=== PATIENT | female | born 1935 | race Caucasian/White ===

== ENCOUNTER 2023-12-31 20:51 | Inpatient (IN) | payer OTHER, SELFPAY ==
[2023-12-31] VITALS (8 sets, daily range): BP systolic 194–234; BP diastolic 45–81; BMI 20.3
[2023-12-31 17:44] LABS: Urine Albumin 2+ (Neg - Trace); Urine Bilirubin Negative (Negative); Urine Character Clear (Clear); Urine Color Yellow; Urine Glucose Negative (Negative); Urine Ketone Negative (Negative); Urine Leukocyte Negative (Negative); Urine Nitrite Negative (Negative); Urine Occult Blood Negative (Negative); Urine Specific Gravity 1.015 (<1.030); Urine Urobilinogen Negative (Neg - 1+)
--- NOTE | 2023-12-31 17:48 | ED.GENMED ---
History of Present Illness
General
Chief Complaint: Social Service Referral
Source: patient and ambulance crew
Exam Limitations: none
Time Seen by Provider: 12/31/23 17:21
Nursing documentation reviewed up to this point in time: agreed with
History of Present Illness
History of Present Illness:
The patient is an 88-year-old female who resides with her in independent living and [facility]. Patient was evaluated by the medical clinic today due to ongoing issues of patient's safety at [facility] such as frequent falls.
Unfortunately, [facility] does not have a room available that would provide a higher level of care so patient was sent to the ED to be evaluated. Patient has no complaints. She arrives pleasant and confused. She denies all pain. Patient is
alert and oriented to herself only. According to the paramedics, the patient and her are generally looked after by their daughter, however, she is on vacation.
Past History
Past History
ED Past Medical History: HTN and Other
ED Past Surgical History: Other
Social History
Tobacco: Non-smoker
Alcohol: None
Drug: None
Personal:
Living: with family
Employment: Other
Family History
Family History: Other
Review of Systems
Review of Systems
Allergies reviewed?: Yes
Unable to obtain full review of systems at this time due to: other (Memory loss)
All Other Systems: Not applicable
Phy Exam
Physical Exam
Physical Exam:
Physical Exam
General: no apparent distress, not acutely ill. Confused, very hard of hearing. Atraumatic appearing face and head
Neck: supple. no meningeal signs. Nontender
Heart: s1/s2 regular rate and rhythm, no chest wall tenderness
Lungs: no acute respiratory distress. clear bilaterally
Abdomen: normal bowel sounds. not tender. no CVAT
Neuro: alert and oriented to self only. no focal neurological deficits
Skin: no rash
Psychiatric: well kept. interactive and cooperative
Extremities: No deformity. Nontender upper and lower extremities. Nontender pelvis and hips.
Course
Orders/Labs/Results
Orders:
Orders
12/31/23 17:25
Electrocardiogram (*1) Urgent
Reason for Study: Fatigue / Weakness
EKG- Treatment ONCE
12/31/23 17:26
CT Head W/o Iv Contrast Urgent
Comment:
Reason For Exam: frequent falls
12/31/23 17:32
Complete Blood Count/With Diff Urgent
Comprehensive Metabolic Panel Urgent
Urinalysis Reflex To Culture Urgent
Date Specimen was Collected: 12/31/23
Time Specimen was Collected: 17:28
Urine Microscopic Reflex Cult Urgent
12/31/23 18:30
Troponin I Urgent
12/31/23 18:40
0.9% Sodium Chloride 1000 ml [Nss] 1,000 ml IV BOLUS
Calcium Gluconate 1,000 mg IV NOW STA
12/31/23 18:41
Sodium Zirconium Cyclosilicate [Lokelma] 5 gram PO NOW STA
Abnormal Lab Results
12/31/23
17:32
WBC 11.4 H 10^3/uL
(4.8-10.8)
RBC 3.89 L 10^6/uL
(4.20-5.40)
Hct 36.3 L %
(37.0-47.0)
MCH 32.6 H pg
(27.0-31.0)
MPV 10.7 H fL
(7.4-10.4)
Abs Immat Gran (auto) 0.1 H 10^3/uL
(0-0.05)
Absolute Neuts (auto) 9.2 H 10^3/uL
(1.4-6.5)
Absolute Monos (auto) 0.8 H 10^3/uL
(0.1-0.6)
Neutrophils % 81.3 H %
(42.2-75.2)
Lymphocytes % 11.1 L %
(20.5-51.1)
Sodium 128 L mmol/L
(135-145)
Potassium 6.2 H* mmol/L
(3.5-5.1)
Chloride 94 L mmol/L
(98-107)
BUN 51 H mg/dl
(7-17)
Creatinine 1.3 H mg/dL
(0.6-1.0)
Glucose 132 H mg/dl
(70-99)
AST 37 H U/L
(14-36)
Urine Bacteria (Reflex) Few A
(Negative)
Urine Albumin (Reflex) 2+ A
(Neg - Trace)
12/31/23 17:32
12/31/23 17:32
Vital Signs
Initial and Last Documented VS:
Initial Vital Signs
Temp Pulse Resp Pulse Ox
97.8 F 60 18 98
12/31/23 17:21 12/31/23 17:21 12/31/23 17:21 12/31/23 17:21
Last Documented Vital Signs
Temp Pulse Resp BP Pulse Ox
97.8 F 59 18 222/69 98
12/31/23 17:21 12/31/23 17:32 12/31/23 18:18 12/31/23 17:37 12/31/23 17:32
MDM/Problems Addressed
Differential Diagnosis Includes:
Acute dehydration, intracranial hematoma, UTI
MDM/Problems Addressed:
Patient presents with frequent falls and inability to care for himself
Chronic conditions affecting care:
Possibly dementia
Acute Exacerbation and/or Progression of Chronic Illness:
Patient may have a history of dementia and this is an acute exacerbation
Acute Exacerbation and/or Progression of Chronic Illness: HTN
*Radiology
Radiology exam reviewed: radiology read reviewed
*Pulse Oximetry
Patient hypoxic: no
*EKG
Interpreted by ED Provider?: Yes
Interpretation: abnormal
Comparison EKG: no comparison EKG present
Rate: bradycardiac
Rhythm: sinus
[place]: left axis deviation
Interval: normal interval
QRS Pattern: normal QRS
Ischemia: non-specific ST changes
*Housekeeping Assistant Interpretation
Rate: bradycardiac
Interpretation: normal
Rhythm: sinus
*Critical Care Note
Total Time (30-74mins, 75-104mins- exclusive of procedures): 35 minutes of critical ca
comment:
35 minutes critical care given to patient including reviewing her EKG, blood work, reviewing her CT urinalysis and speaking to the hospitalist
Data Reviewed
Source: patient
Patient Management
Social determinants of health affecting care: Living situation
Discussion with other providers: Hospitalist
Escalation/DeEscalation of care consider admission/obs:
Patient has an [id number]-yymqoof blood pressure, is hyperkalemic and dehydrated. Patient will be admitted
ED Attending Note
-
Portions of this chart may have been created with voice recognition software.� Occasional wrong word or��sound alike� substitutions may have occurred due to the inherent limitations of voice recognition software.
Discharge Plan
Departure
Patient Disposition: Admit
Date of Disposition: 12/31/23
Time of Disposition: 18:44
Admit to: Telemetry
Presentation/result/management discussed w/ accepting MD/DO: Hospitalist
Patient with high blood pressure during this ER visit?: Yes
Condition: Fair
Covid-19: Not Applicable
Discharge Problem:
Adult failure to thrive, Acute dehydration, Acute hyperkalemia
Prescriptions:
No Action
levothyroxine 25 mcg Tablet
25 mcg PO DAILY
ascorbic acid (vitamin C) [Vitamin C] 500 mg Tablet,Chewable
500 mg PO DAILY
doxazosin 4 mg Tablet
4 mg PO DAILY
spironolactone 50 mg Tablet
50 mg PO DAILY
ramipril 10 mg Capsule
10 mg PO DAILY
cholecalciferol (vitamin D3) 50 mcg (2,000 unit) Tablet
50 mcg PO DAILY
PreserVision AREDS-2 250-90-40-1 mg Capsule
1 tab PO BID
Referrals:
Nadege Tiwari MD [Family Provider] -
Interventions
Interventions:
*Risk Screen - Suicide Last Done: 12/31/23 17:28
*General Assessment Last Done: 12/31/23 17:28
*Neglect/Abuse Screening Last Done: 12/31/23 17:28
ED- Fall Risk Assessment Last Done: 12/31/23 17:38
*ED COVID-19 Vaccine History Last Done: 12/31/23 17:28
ED-Psychological Assessment Last Done: 12/31/23 17:30
Discharge Date and Time
Print Language: GEORGIAN
[2023-12-31 17:51] LABS: % Basophils 0.4 % (0-2); % Eosinophils 0.1 % (0-6); % Immature Granulocytes 0.4 % (0-0.5); % Lymphocytes 11.1 % (20.5-51.1); % Monocytes 6.7 % (1.7-9.3); % Neutrophils 81.3 % (42.2-75.2); Absolute Immature Granulocytes 0.1 10^3/uL (0-0.05); Absolute Lymphocytes 1.3 10^3/uL (1.2-3.4); Absolute Monocytes 0.8 10^3/uL (0.1-0.6); Absolute Neutrophils 9.2 10^3/uL (1.4-6.5); Hematocrit 36.3 % (37.0-47.0); Hemoglobin 12.7 g/dL (12.0-16.0); Mean Corpuscular Hgb 32.6 pg (27.0-31.0); Mean Corpuscular Volume 93.3 fL (81.0-99.0); Mean Platelet Volume 10.7 fL (7.4-10.4); Nucleated Red Blood Cells % 0 %; Platelet Count 189 10^3/uL (130-400); Red Blood Cell Count 3.89 10^6/uL (4.20-5.40); Red Cell Dist. Width 14.2 % (11.5-14.5); White Blood Cell Count 11.4 10^3/uL (4.8-10.8)
[2023-12-31 17:54] LABS: Urine Bacteria Few (Negative); Urine Red Blood Cell 0-2 /HPF (0-2); Urine White Cell 0-2 /HPF (0-5)
[2023-12-31 18:03] LABS: ALT (SGPT) 22 U/L (0-35); AST (SGOT) 37 U/L (14-36); Albumin 4.1 g/dl (3.5-5.0); Alkaline Phosphatase 68 U/L (38-126); Blood Urea Nitrogen 51 mg/dl (7-17); Calcium 9.9 mg/dl (8.4-10.2); Carbon Dioxide 22 mmol/L (22-30); Chloride 94 mmol/L (98-107); Estimated Creatinine Clearance 21 ml/min; Glucose 132 mg/dl (70-99); Potassium 6.2 mmol/L (3.5-5.1); Sodium 128 mmol/L (135-145); Total Bilirubin 0.5 mg/dl (0.2-1.3); Total Protein 6.8 g/dl (6.3-8.2); eGFR 39.31
[2023-12-31] MEDS: CALCIUM GLUCONATE 1000 MG IV (19:03)
[2023-12-31] MEDS: LOKELMA 5 GRAM PO (19:04)
[2023-12-31] MEDS: NSS 1000 IV ×2 (19:04→21:57)
[2023-12-31 19:06] LABS: Troponin I 0.079 ng/ml
--- NOTE | 2023-12-31 19:44 | HPS.HSE ---
Family Physician
-
Family Physician: Nadege Tiwari
Chief Complaint
-
Weakness
History of Present Illness
Patient is an 88y F with PMH significant for hypertension and dementia who presents to ED for evaluation of recent decline, weakness and falls. History obtained from patient and review of outpatient medical records. Patient has had several
recent falls at home - though she denies this to me. She has not apparently suffered any significant injury; however, she has demonstrated functional decline. There is some question of whether or not she has been taking her medications
consistently. Patient currently lives independently with her at [facility].
In the ED, patient is resting comfortably and has no complaints.
Medical History
Past Medical History
Past Medical History: Reports Other
Additional Past Medical History:
Hypertension
Dementia
Hypothyroidism
Past Surgical History: Reports Other
Additional Past Surgical History:
Left Shoulder Surgery
Social History
Unable to obtain full social history at this time due to: Dementia
Family History
Family History: Unable to Obtain
Allergies / Home Medications
Allergies reflects when Allergies were last updated in [facility].
Home Medications with original date entered in [facility]
Allergy/Medication List:
Allergies
Allergy/AdvReac Type Severity Reaction Status Date / Time
No Known Allergies Allergy Verified 12/31/23 17:21
Home Medications
ascorbic acid (vitamin C) 500 mg chewable tablet (Vitamin C) 500 mg PO DAILY 12/31/23
cholecalciferol (vitamin D3) 50 mcg (2,000 unit) tablet 50 mcg PO DAILY 12/31/23
doxazosin 4 mg tablet 4 mg PO DAILY 12/31/23
levothyroxine 25 mcg tablet 25 mcg PO DAILY 12/31/23
ramipril 10 mg capsule 10 mg PO DAILY 12/31/23
spironolactone 50 mg tablet 50 mg PO DAILY 12/31/23
vit C 250 mg-vit E 90 mg-zinc 40 mg-copper 1 [id number] capsule (PreserVision AREDS-2) 1 tab PO BID 12/31/23
Review of Systems
-
History Source: Patient
A 12 point ROS was completed and negative except as noted: Yes
Constitutional: Denies Fever
Respiratory: Denies Cough or Trouble Breathing
Cardiac: Denies Chest Pain or Palpitations
Abdomen/GI: Denies Abdominal Pain
Neurological: Denies Headache
Physical Exam
Vital Signs
Vital Signs
Temp Pulse Resp BP Pulse Ox
97.8 F 59 18 222/69 98
12/31/23 17:21 12/31/23 17:32 12/31/23 18:18 12/31/23 17:37 12/31/23 17:32
Physical Exam
General: Other (Elderly 88y F in no acute distress.)
HEENT: Other (Dry MM.)
Respiratory: Clear; No Wheezes, Rales or Rhonchi
Cardiac: S1/S2, Regular Rhythm and Murmur (IV/ JOANN)
GI: Soft, Non Tender, Non Distended and Normal Bowel Sounds
Musculoskeletal: No Clubbing, No Cyanosis and No Edema
Neuro: Awake, Alert and Nonfocal/grossly intact; No Oriented
Psych: No Agitated
Laboratory Results
-
12/31/23 17:32
12/31/23 17:32
Laboratory Results
Total Bilirubin 0.5 mg/dl (0.2-1.3) 12/31/23 17:32
AST 37 U/L (14-36) H 12/31/23 17:32
ALT 22 U/L (0-35) 12/31/23 17:32
Alkaline Phosphatase 68 U/L (38-126) 12/31/23 17:32
Troponin I 0.079 ng/ml H* 12/31/23 18:30
Impression/Plan
-
A/P: Patient is an 88y F with PMH significant for hypertension and dementia who presents to ED for evaluation of functional decline and recent falls.
GEMMA
Hyperkalemia
- Admit for further evaluation and treatment.
- SCr = 1.3 with no prior values for comparison.
- K = 6.2 today without T wave changes c/w hyperkalemia.
- Patient producing urine via PureWick in the ED.
- Bladder scan protocol and straight cath / Pappas if needed.
- IVF support for correction of apparent hypovolemia.
- Follow for improvement in SCr and K.
- Hold BARB inhibitor and spironolactone.
Hypertension - Uncontrolled
- BP in the ED is significantly elevated without specific symptoms / complaints.
- Hold BARB and spironolactone as noted above.
- Labetalol IV now and PRN for very high BP.
- Begin Procardia for BP control and adjust regimen as needed.
Hypothyroidism
- Check TFTs and adjust T4 dosing if needed.
Senile Dementia
- Stable. Not on any mood stabilizing medications, etc at present.
- Follow for any acute agitation, etc during hospital stay.
Frequent Falls / Gait Dysfunction
- Multiple recent falls at home reported.
- PT / OT evaluations.
DVT Prophylaxis: SCDs
Code Status: Full
[2023-12-31] MEDS: TRANDATE 5 MG IV (20:14)
[2023-12-31] MEDS: APRESOLINE 10 MG IV (22:57)
[2023-12-31 23:29] LABS: Free T4 0.43 ng/dl (0.78-2.19)
[2023-12-31 23:55] LABS: Troponin I 0.091 ng/ml
[2024-01-01] VITALS (20 sets, daily range): BP systolic 130–231; BP diastolic 36–71; BMI 19.9
[2024-01-01] MEDS: TRANDATE 10 MG IV (05:28)
[2024-01-01] MEDS: SYNTHROID 25 MCG PO ×2 (05:29→08:43)
[2024-01-01 05:40] LABS: Hematocrit 32.4 % (37.0-47.0); Hemoglobin 11.8 g/dL (12.0-16.0); Mean Corp Hgb Conc. 36.4 g/dL (33.0-37.0); Mean Corpuscular Hgb 32.5 pg (27.0-31.0); Mean Corpuscular Volume 89.3 fL (81.0-99.0); Mean Platelet Volume 10.6 fL (7.4-10.4); Platelet Count 179 10^3/uL (130-400); Red Blood Cell Count 3.63 10^6/uL (4.20-5.40); Red Cell Dist. Width 13.8 % (11.5-14.5); White Blood Cell Count 10.8 10^3/uL (4.8-10.8)
[2024-01-01 06:00] LABS: Blood Urea Nitrogen 39 mg/dl (7-17); Calcium 9.4 mg/dl (8.4-10.2); Carbon Dioxide 19 mmol/L (22-30); Chloride 103 mmol/L (98-107); Estimated Creatinine Clearance 25 ml/min; Glucose 96 mg/dl (70-99); Potassium 4.7 mmol/L (3.5-5.1); Sodium 131 mmol/L (135-145); eGFR 48.03
[2024-01-01 06:20] LABS: Troponin I 0.186 ng/ml
[2024-01-01 08:22] LABS: HDL Cholesterol 108 mg/dl; Triglyceride 84 mg/dl (10-149); Very Low Density Lipoprotein 16 mg/dl (0-30)
[2024-01-01 08:36] LABS: LDL Cholesterol, Calculated 236 mg/dl; Total Cholesterol 360 mg/dl (50-199)
[2024-01-01] MEDS: ASPIRIN 325 MG PO (08:42)
[2024-01-01] MEDS: CARDURA 4 MG PO (08:42)
[2024-01-01] MEDS: PROCARDIA XL (EXTENDED RELEASE) 60 MG PO (08:42)
[2024-01-01] MEDS: NSS IV (08:42)
--- NOTE | 2024-01-01 08:44 | W.PN.HOSP.TC ---
Today's Communication/Plan
-
see PN
Assessment / Plan
Assessment / Plan
88yo F with PMHx of hypothyroidism, HTN sent from [facility] due to concerns that she needs to be in the higher level of care. Upon admission found hyperkalemia with mild Cr elevation, HTN urgency, elevated troponin and poor
hypothyroidism control. With signs of dementia questioning medication compliance.
As per over the phone - patient was feeling very weak and could not hold herself on her legs, no actual falls, but when she slid down to the floor - he could not help to raise her up. Also their daughter, who is usually helping them is away
in [place]. Also patient was complaining about inability to move her L leg properly for 1 week
A/P:
#HTN urgency
#Most likely non-ischemic cardiac injury with elevated troponins 2/2 HTN
EKG with significant signs of LVH
seruial trops
ASA
check lipids and initiate statin if needed
Echo
cardiology consult
cont BP meds and follow trend, might need nicardipine drip if persistently high
#Hyperkalemia
#GEMMA vs mild Cr elevation on CKD
resolving with hypdration and holding Ramipril and Aldacton
follow BMP
#Hypothyroidism
poor conjtrol, TSH elevated
Synthroid increased to 50mcg daily, recheck TSH in 2-3 weeks with PCP
#Ambulatory dysfunction with LLE weakness, concern for CVA
#mild leucocytosis
NIH scale
Neurochecks
MRI brain, MRA head and neck
ASA, statin
If stroke confirmed - neurology cosnult
Telemetry
CT head without bleeding or stroke signs
UA neg for infection
check COVID-19, Influenza
Chest XR pending reading, no overt signs of pneumonia
PT/OT
#Hs of L shoulder replacement
stable hardware on XR
I have spent at least 59min reviewing the chart, test results, communication with consultants, family and direct patient care
DVT ppx on hep
DNR/DNI - discussed in details with
Anticipated Discharge: > 48 hours
Subjective/Interval History
-
Date of Service: January 01, 2024
Objective Data
-
Labs:
Laboratory Results
01/01/24
04:51
WBC 10.8
Hgb 11.8 L
Hct 32.4 L
Plt Count 179
Sodium 131 L
Potassium 4.7
Chloride 103
Carbon Dioxide 19 L
BUN 39 H
Creatinine 1.1 H
Glucose 96
Calcium 9.4
Vital Signs:
Vital Signs
Temp Pulse Resp BP Pulse Ox
97.8 F 54 20 180/52 97
12/31/23 17:21 01/01/24 06:00 01/01/24 06:00 01/01/24 06:00 01/01/24 01:49
I&O
12/31/23 01/01/24 01/02/24
06:59 06:59 06:59
Intake Total 1040 / 1040
Output Total 250 / 250
Balance 1040 / 1040 -250 / -250
Review of Systems
-
Unable to obtain full review of systems at this time due to: Dementia
History Source: Patient and Family
All other systems: Reviewed and negative
Physical Exam
-
General: No Apparent Distress
HEENT: Normocephalic
Respiratory: Clear to Auscultation
Cardiac: Regular Rhythm and Murmur
GI: Soft, Nontender and Nondistended
Musculoskeletal: No Clubbing, No Cyanosis and No Edema
Neuro: Awake, Alert, Oriented and Other (LLE weakness)
Psych: Calm and Apparent Dementia
[2024-01-01 08:53] LABS: Cortisol, Random 8.9 ug/dl
[2024-01-01 08:56] LABS: COVID-19 Antigen Negative (Negative)
[2024-01-01 10:06] LABS: Glycohemoglobin (HgbA1c) 5.8 % (4.0-5.6)
--- NOTE | 2024-01-01 11:37 | PTOTSP ---
Speech Therapy Evaluation:
Pt's oropharyngeal swallow function appears within functional limits at this time. Pt with functional oral stage and no overt s/sx across meal with regular solids or thin liquids via cup. RN reported no difficulty with medication when taken whole
with thin liquids.
Recommend:
1. IDDSI Level 7 (regular) solids and thin liquids
2. Medications as tolerated
3. General aspiration precautions
4. No further ST tx indicated. AIRVEYOR OPERATOR to sign off
--- NOTE | 2024-01-01 12:10 | CON.CAR ---
Addendum entered and electronically signed by Emmett Conner MD 01/01/24 13:35:
Patient seen and examined with collaboration with AIRCRAFT ELECTRICIAN; agree with below.
-88-year-old female with hypertension, hypothyroidism, dementia, recurrent falls, and a heart murmur presenting with hypertensive emergency.
-The patient is a poor historian; had a blood pressure of 222/69 mmHg with hyperkalemia, hyponatremia, and renal dysfunction on admission.
-Blood pressure is improving as per Hospitalist management; continue nifedipine and doxazosin--blood pressure is currently controlled.
-Will obtain an echocardiogram to thoroughly assess cardiac function; conservative cardiac management recommended overall--poor candidate for any aggressive measures.
Original Note:
Consultation
Consultation Request
Date/Time Consultation Requested: 01/01/24 8a
Date/Time Consultation Performed: 01/01/24 12p
Requesting Provider: Dr. Kamara
Performing Provider: LE Grossman for Dr. Conner
Reason for Consultation: acute non-ischemic myocardial injury secondary to HTN emergency
Medical History
-
Chief Complaint: falls at home
History of Present Illness:
Mrs. Eugene is an 88 yo female with HTN, hypothyroidism and dementia, who presents from [facility] for recent falls. On arrival to the ER she was noted to have hypertensive emergency with initial blood pressure 222/69,
potassium 6.2, sodium 128, creatinine 1.3, TSH 93.2, free T40.43, and initial troponin 0.079, second troponin 0.091, third troponin 0.186, fourth troponin 1.1. Her is present during this interview and provides collateral information. The
patient has dementia at baseline and reports feeling 'wonderful'. Her states she has been falling at home, where her legs feel weak and she falls to the ground. Her primary care physician is at [facility] and he states she is scheduled
to see the boxing and pressing supervisor at [facility] next week. They recently moved here from [place] and she had a boxing and pressing supervisor, Dr. Peters, in [place] followed for 'irregular heartbeats ', he thinks she has A-fib and was previously on Coumadin but taken
off for unclear reasons.
Past Medical History
Past Medical History: Other (As above)
Past Surgical History: Other (As above)
Social History
Tobacco: Non-Smoker
Alcohol: None
Personal:
Living: With Family ( at [facility] independent living)
Family History
Family History: Reviewed & Not Pertinent
Allergies / Home Medications
Allergy/AdvReac Type Severity Reaction Status Date / Time
No Known Allergies Allergy Verified 12/31/23 17:21
�Medication �Instructions �Recorded �Confirmed �Type
ascorbic acid (vitamin C) 500 mg 500 mg PO DAILY 12/31/23 12/31/23 History
chewable tablet (Vitamin C)
cholecalciferol (vitamin D3) 50 50 mcg PO DAILY 12/31/23 12/31/23 History
mcg (2,000 unit) tablet
doxazosin 4 mg tablet 4 mg PO DAILY 12/31/23 12/31/23 History
levothyroxine 25 mcg tablet 25 mcg PO DAILY 12/31/23 12/31/23 History
ramipril 10 mg capsule 10 mg PO DAILY 12/31/23 12/31/23 History
spironolactone 50 mg tablet 50 mg PO DAILY 12/31/23 12/31/23 History
vit C 250 mg-vit E 90 mg-zinc 40 1 tab PO BID 12/31/23 12/31/23 History
mg-copper 1 [id number]
capsule (PreserVision AREDS-2)
Review of Systems
-
History Source: Patient and Family ()
All other systems: Negative unless noted
Physical Exam
Vital Signs
Temp Pulse Resp BP Pulse Ox
97.8 F 62 22 130/44 97
12/31/23 17:21 01/01/24 10:00 01/01/24 10:00 01/01/24 10:00 01/01/24 10:13
Lab Results
01/01/24 04:51
01/01/24 04:51
Troponin I 0.186 ng/ml H* D 01/01/24 04:51
Physical Exam
General: Well Developed and Well Nourished
HEENT: Normocephalic and Anicteric
Respiratory: Clear and Non Labored Respirations
Cardiac: S1/S2, Regular Rhythm and Murmur (3/6 JOANN)
Breast: Deferred by me
GI: Soft, Non Tender and Normal Bowel Sounds
Rectal: Deferred by Provider
Genito-urinary: No Costovertebral Tender
Musculoskeletal: No Clubbing and No Cyanosis
Skin: Warm and Dry
Neuro: Awake, Alert and Oriented (x 2 (self and place))
Hematologic/Lymphatic: No Lymphadenopathy
Psych: Calm
Impression / Plan
-
Non-ischemic myocardial injury - acute.
-Secondary to acute hypertensive emergency, GEMMA, hyperkalemia, hyponatremia.
-Trend troponin to peak.
-She denies any anginal symptoms.
-Will check an echo.
-EKG sinus bradycardia 59 bpm, LVH with repolarization abnormality.
Hypertensive emergency - blood pressure significantly improved with Cardene.
-Likely secondary to medication noncompliance at home.
-Continue outpatient medications and monitor.
-LVH noted on EKG, no prior for comparison.
-Check echo.
Murmur - possibly new.
-She and her deny history of valvular heart disease.
-Likely aortic stenosis.
-Will check an echo.
Hypothyroid - TSH 93.2, Free T4 0.43.
-Supposedly on levothyroxine 25 mcg daily at home.
-Management per hospitalist.
GEMMA - unsure of baseline/history.
-Monitor BMP.
Hyperkalemia -acute with potassium 6.2 on admission
-Potassium today 4.7.
-Outpatient Aldactone on hold.
Dementia - chronic.
-Concern for medication noncompliance and needing a higher level of care, per hospitalist.
Data Reviewed
-
EKG: Tracing Personally Visualized and interpreted (EKG sinus bradycardia 59 bpm, LVH with repolarization abnormality)
Radiology: Report Reviewed by me (CXR: Moderate cardiomegaly, mild to moderate after right mediastinal shift 2/2 volume loss of right lung, subsegmental atelectasis and basilar segments of lower lobes, multiple chronic right rib fractures, severe
osteoporosis)
Labs: Labs Reviewed by me
--- NOTE | 2024-01-01 14:41 | CM ---
CM received call from Shu at the [facility]. Shu stated that [place] lives in [place]. has recently been discharged from the [facility] back to their apartment. Patient was to hire assistance, but was unable to secure help in the
apartment.
CM sent preliminary referral to [facility]. CM is pending PT evaluations.
--- NOTE | 2024-01-01 15:07 | W.PN.UPDATE ---
Addendum entered and electronically signed by Abdelrahman Kamara MD 01/01/24 16:49:
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
outpatient CT to be recommended - to follow with PCP
#Several mild compression fractures within the upper lumbar spin
#Multiple bilateral chronic rib fractures.
#Mildly displaced fractures of the posterior left 11th 12 ribs may be more acute in nature
No significant pain
most likely Fx 2/2 osteoporosis and trauma
No evidence for pneumothorax.
Can consider DEXA scan as outpatient vs bisphosphonates treatment with PCP
Original Note:
Update Note
Progress Note Update
Elevated trop 1.1 discussed with cardio - non-ischemic injury
Hypothyroidism discussed with endo - since no concern for mixedema - increase to 50mcg daily is sufficient with TSH reassessment in 4 weeks with pcp and possible further increase to weight-based 75mcg. AM cortison appropriate for age and time (5am)
acute CVA - ASA, statin, neuro consult, MRA without LVO or significant carotid stenosis, Echo ordered, Cont telemetry. Patient previously with PMHx of Afib was taken off AC for unknown reason, currently in SR
XR showed mediastinal shift to R - CT shest
will be in touch with daughter so she can provide her contact info for the further communication
--- NOTE | 2024-01-01 15:19 | CON.NEURO4 ---
Consultation - Neurology 4
-
CONSULTING PHYSICIAN: Ross Billings MD
REFERRING PHYSICIAN: Hospitalist
DICTATED BY: Ross Billings MD
DATE/TIME OF REQUEST: January 07 2024
DATE/TIME OF CONSULTATION: January 07, 2024
Reason for Consultation: Weakness
History of Present Illness:
This is a 88 year old right) handed female) who has presented to the hospital with (chief complaint) recurrent falls with weakness. She gives a history of uncontrolled hypothyroidism uncontrolled hypertension noncompliant with medications who has
had memory problems and confusion over the last 5 years. She is currently a long term resident and lives with her at a local facility. She was seen at a local medical clinic due to recurrent falls. At that time she mentioned weakness
of her left leg with difficulty standing and walking and and difficulty maintaining her balance with a tendency to trip. Her is unable to help her with transfers and unable to get her off the floor should she fall.
At the time of my exam patient is awake confused oriented to person with limited speech. She has a tendency to curl up. She is moving all 4 extremities
Echocardiogram reveals severe aortic stenosis moderate mitral stenosis with a dilated left atrium and ventricular hypertrophy and findings suggestive of cardiac amyloidosis
Past Medical History: As above
Surgical History: Left shoulder repair
Family History: Noncontributory
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 No history of alcohol or smoking
Allergies: None
Home Medications: See addendum
Review of Symptoms: Per the HPI. I am unable to obtain a complete review of systems�because of patient's inability to provide history.'
Vital Signs:
The patient has a
Temp Pulse Resp BP Pulse Ox
36.6 C 64 26 147/61 94
Physical Exam:
The patient is afebrile, heart sounds S1 and S2 are regular and chest is clear to auscultation bilaterally.
Neurologic Examination:
The patient is awake, confused and oriented x person. She) is able to follow commands intermittently and answer questions occasionally. Speech is limited with aphasia and dysarthria. Attention concentration and memory are impaired with limited
registration and poor recall
On cranial nerve assessment, pupils are 3 mm bilateral, round and reactive to light and accommodation. Visual cruz are full. Extraocular movements are intact. Facial sensations are intact and bilaterally symmetrical, there is no facial asymmetry.
Hearing is impaired bilaterally. Tongue palate and uvula are midline. Gag is present sternocleidomastoid strengths are full bilaterally.
Motor strengths are 5/5 bilateral upper and lower extremities on medical research [place] scale. There is no drift or involuntary movement noted.
Deep tendon reflexes are + bilateral upper and lower extremities and Babinski is absent bilaterally. Sensations of pain, touch, temperature and vibration are intact and bilaterally symmetrical.
Coordination is intact and she reaches for objects appropriately. Romberg's and gait cannot be tested as the patient is bedbound.
Lab Results: See addendum
Neuro Imaging: CT head shows normal pressure hydrocephalus. MRI of the brain shows dilated ventricles. And shows a minute basal ganglia lacunar infarct that is unlikely to cause weakness
Impression: Ms.) JESSICA MATHIS is a 88 year old F who has presented to the hospital with (symptoms/chief complaint). Recurrent falls memory problems and incontinence
Differentials for the patient's presentation include:
1. Normal pressure hydrocephalus
2. Right basal ganglia lacunar infarct of minuscule proportion that is unlikely to cause weakness
Recommendations:
1. Aspirin 81
2. Strict blood pressure control
3. Synthroid
4. Low strength statin
5. Physical therapy/Occupational Therapy
6. Social work consult for long term placement
Discussed patient care with: Hospitalist
Allergies
-
Allergies
Allergy/AdvReac Type Severity Reaction Status Date / Time
No Known Allergies Allergy Verified 12/31/23 17:21
Vital Signs and Labs
-
Vital Signs and Labs:
Vital Signs
Temp Pulse Resp BP Pulse Ox
36.6 C 64 26 147/61 94
12/31/23 17:21 01/01/24 15:00 01/01/24 15:00 01/01/24 14:04 01/01/24 14:05
Lab Results
01/01/24 04:51
01/01/24 04:51
Sodium 131 mmol/L (135-145) L 01/01/24 04:51
Potassium 4.7 mmol/L (3.5-5.1) 01/01/24 04:51
BUN 39 mg/dl (7-17) H 01/01/24 04:51
Glucose 96 mg/dl (70-99) 01/01/24 04:51
Calcium 9.4 mg/dl (8.4-10.2) 01/01/24 04:51
LDL Cholesterol, Calc 236 mg/dl 01/01/24 04:51
Medications
-
Active Medications
Generic Name Dose Route Start Last Admin
Trade Name Freq PRN Reason Stop Dose Admin
Acetaminophen 650 mg 12/31/23 21:37
Acetaminophen 325 Mg Tablet PO 01/28/24 21:36
Q4HPRN PRN
Mild Pain / Temp > 101
Aspirin 81 mg 01/02/24 08:00
Aspirin 81 Mg Chewable Tablet PO 01/30/24 07:59
DAILY FREDDY
Atorvastatin Calcium 80 mg 01/01/24 18:00
Atorvastatin (Lipitor) 80 Mg Tablet PO 01/29/24 17:59
QPM FREDDY
Doxazosin Mesylate 4 mg 01/01/24 08:00 01/01/24 08:42
Doxazosin 4 Mg Tablet PO 01/29/24 07:59 4 mg
DAILY FREDDY Administration
Heparin Sodium 5,000 units 01/01/24 20:00
Heparin 5,000 Units/Ml 1 Ml Vial SC 01/29/24 19:59
Q12 FREDDY
Hydralazine HCl 10 mg 12/31/23 22:53 12/31/23 22:57
Hydralazine 20 Mg/Ml Vial IV 01/28/24 22:52 10 mg
Q6HPRN PRN Administration
SBP > 180
Labetalol HCl 10 mg 12/31/23 21:37 01/01/24 05:28
Labetalol Hcl 5 Mg/1 Ml (20 Mg/4 Ml) Injection IV 01/28/24 21:36 10 mg
Q6HPRN PRN Administration
SBP > 180
Levothyroxine Sodium 50 mcg 01/02/24 06:00
Levothyroxine 50 Mcg Tablet PO 01/30/24 05:59
DAILY@0600 FREDDY
Nifedipine 60 mg 01/01/24 08:00 01/01/24 08:42
Nifedipine 60 Mg Extended Release Tablet PO 01/29/24 07:59 60 mg
DAILY FREDDY Administration
Sodium Chloride 0 flush 12/31/23 23:00
Sodium Chloride 0.9% (Flush) Syringe IV 01/28/24 22:59
PER PROTOCOL FREDDY
Home Medications
�Medication �Instructions �Recorded
ascorbic acid (vitamin C) 500 mg 500 mg PO DAILY 12/31/23
chewable tablet (Vitamin C)
cholecalciferol (vitamin D3) 50 50 mcg PO DAILY 12/31/23
mcg (2,000 unit) tablet
doxazosin 4 mg tablet 4 mg PO DAILY 12/31/23
levothyroxine 25 mcg tablet 25 mcg PO DAILY 12/31/23
ramipril 10 mg capsule 10 mg PO DAILY 12/31/23
spironolactone 50 mg tablet 50 mg PO DAILY 12/31/23
vit C 250 mg-vit E 90 mg-zinc 40 1 tab PO BID 12/31/23
mg-copper 1 [id number]
capsule (PreserVision AREDS-2)
[2024-01-01] MEDS: LIPITOR 80 MG PO (18:17)
[2024-01-01] MEDS: HEPARIN SC ×2 (22:10→22:22)
[2024-01-01] MEDS: APRESOLINE 10 MG IV (23:36)
[2024-01-02] VITALS (10 sets, daily range): BP systolic 129–198; BP diastolic 52–99; PULSE 69–83; O2SAT 95
[2024-01-02] MEDS: SYNTHROID 50 MCG PO (06:13)
[2024-01-02 07:11] LABS: % Basophils 0.4 % (0-2); % Eosinophils 0.7 % (0-6); % Immature Granulocytes 0.2 % (0-0.5); % Lymphocytes 8.8 % (20.5-51.1); % Monocytes 6.7 % (1.7-9.3); % Neutrophils 83.2 % (42.2-75.2); Absolute Eosinophils 0.1 10^3/uL (0-0.7); Absolute Lymphocytes 0.9 10^3/uL (1.2-3.4); Absolute Monocytes 0.7 10^3/uL (0.1-0.6); Absolute Neutrophils 8.8 10^3/uL (1.4-6.5); Hematocrit 35.1 % (37.0-47.0); Hemoglobin 12.7 g/dL (12.0-16.0); Mean Corp Hgb Conc. 36.2 g/dL (33.0-37.0); Mean Corpuscular Hgb 32.6 pg (27.0-31.0); Mean Platelet Volume 10.3 fL (7.4-10.4); Nucleated Red Blood Cells % 0 %; Platelet Count 192 10^3/uL (130-400); Red Cell Dist. Width 13.9 % (11.5-14.5); White Blood Cell Count 10.6 10^3/uL (4.8-10.8)
[2024-01-02 07:46] LABS: ALT (SGPT) 22 U/L (0-35); AST (SGOT) 54 U/L (14-36); Albumin 3.4 g/dl (3.5-5.0); Alkaline Phosphatase 65 U/L (38-126); Blood Urea Nitrogen 32 mg/dl (7-17); Calcium 9.5 mg/dl (8.4-10.2); Carbon Dioxide 20 mmol/L (22-30); Chloride 100 mmol/L (98-107); Estimated Creatinine Clearance 29 ml/min; Glucose 118 mg/dl (70-99); Potassium 4.8 mmol/L (3.5-5.1); Sodium 129 mmol/L (135-145); Total Bilirubin 0.8 mg/dl (0.2-1.3); Total Protein 6.1 g/dl (6.3-8.2); eGFR 53.85
--- NOTE | 2024-01-02 07:54 | W.PN.CD ---
Today's Communication / Plan
-
-Severe aortic stenosis, moderate mitral stenosis and other findings suggestive of cardiac amyloidosis
-Clinically deteriorating condition-with amyloidosis, need to discuss with the family for the plan with severe valvular disease
Impression / Plan
-
Non-ischemic myocardial injury - acute.
-Secondary to acute hypertensive emergency, GEMMA, hyperkalemia, hyponatremia.
-Trend troponin peaked at 1.6. Now troponin is 1.04
-She denies any anginal symptoms.
-Echo -01/01/2024: LVEF 65%. Findings suggestive of cardiac amyloid. Severely dilated bi-atria. Severe aortic stenosis with mean gradient 51 mmHg. Moderate MS mean gradient 5 mmHg.
-EKG sinus bradycardia 59 bpm, LVH with repolarization abnormality.
Hypertensive emergency - blood pressure significantly improved with Cardene.
-Likely secondary to medication noncompliance at home.
-Continue outpatient medications and monitor.
-LVH noted on EKG, no prior for comparison.
-Check echo.
Severe aortic stenosis.
-She and her deny history of valvular heart disease.
-Echo confirmed severe aortic stenosis. Aortic valve area 0.9 cm� with mean gradient 51 mmHg
-Also findings of cardiac amyloidosis. Severely dilated left and right atria. Thickened mitral valve and moderate mitral stenosis
-Extreme frailty with age and amyloid�conservative management for now.
Hypothyroid - TSH 93.2, Free T4 0.43.
-Supposedly on levothyroxine 25 mcg daily at home.
-Management per hospitalist.
GEMMA - unsure of baseline/history.
-Monitor BMP.
Hyperkalemia -acute with potassium 6.2 on admission
-Potassium today 4.7.
-Outpatient Aldactone on hold.
Dementia - chronic.
-Concern for medication noncompliance and needing a higher level of care, per hospitalist.
Physical Exam
Vital Signs/Labs
Vital Signs
Temp Pulse Resp BP Pulse Ox
97.9 F 78 17 174/55 96
01/02/24 03:28 01/02/24 03:28 01/02/24 03:28 01/02/24 03:28 01/02/24 03:28
01/01/24 01/02/24 01/03/24
06:59 06:59 06:59
Actual Weight 47.2 kg 47.656 kg
01/02/24 06:46
01/02/24 06:46
Triglycerides 84 mg/dl (10-149) 01/01/24 04:51
LDL Cholesterol, Calc 236 mg/dl 01/01/24 04:51
VLDL Cholesterol, Calc 16 mg/dl (0-30) 01/01/24 04:51
HDL Cholesterol 108 mg/dl 01/01/24 04:51
Free T4 0.43 ng/dl (0.78-2.19) L 12/31/23 17:32
LAB Results
12/31/23 12/31/23 01/01/24
18:30 23:14 04:51
Troponin I 0.079 H* 0.091 H* 0.186 H* D
01/01/24 01/01/24 01/02/24
11:29 22:25 06:46
Troponin I 1.100 H* D 1.600 H* 1.040 H*
Physical Exam
Constitutional: No acute distress and Comfortable
EENT: Anicteric and Moist mucous membranes
Cardiovascular: Pedal edema is absent, Rhythm/rate is irregular, JVD present and Systolic murmur present
Respiratory: Respiratory effort normal
GI: Soft, Normal bowel sounds and Distention present
Neuro/Psych: Other (sleeping)
Data Reviewed
-
Date of Service: January 02, 2024
EKG: Tracing Personally Visualized and interpreted
Echo: Report Reviewed by me
Medical Tests (PFT, Pathology etc): Discussed with Family
Labs: Labs Reviewed by me
Old Records: Reviewed
--- NOTE | 2024-01-02 09:09 | W.PN.HOSP.TC ---
Today's Communication/Plan
-
PT/OT
Enalapril @PM
IVF and recheck BMP
Assessment / Plan
Assessment / Plan
88yo F with PMHx of hypothyroidism, HTN sent from [facility] due to concerns that she needs to be in the higher level of care. Upon admission found hyperkalemia with mild Cr elevation, HTN urgency, elevated troponin and poor
hypothyroidism control. With signs of dementia questioning medication compliance.
A/P:
#HTN urgency
#Most likely non-ischemic cardiac injury with elevated troponins 2/2 HTN
#Severe
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
EKG with significant signs of LVH
adjust BP meds
cardiology consult
cont BP meds and follow trend, might need nicardipine drip if persistently high
#Hyperkalemia
#Mild hyponatremia
#GEMMA vs mild Cr elevation on CKD
resolving with hypdration and holding Aldacton
follow BMP
#Ambulatory dysfunction with LLE weakness, concern for CVA
#mild leukocytosis -resolved
#Acute and subacute small lacunar CVA
#NPH
NIH scale
Neurochecks
neuro consult - medical mgmt
telemetry without clinically significant arrhythmia
MRA neck without LVO or significant carotid stenosis
ASA, statin
UA neg for infection
COVID-19, Influenza PCR neg
PT/OT
#Hs of L shoulder replacement
stable hardware on XR
#Elevated trop 1.1 discussed with cardio - non-ischemic injury
#Hypothyroidism discussed with endo - since no concern for mixedema - increase to 50mcg daily is sufficient with TSH reassessment in 4 weeks with pcp and possible further increase to weight-based 75mcg. AM cortison appropriate for age and time (5am)
acute CVA - ASA, statin, neuro consult, MRA without LVO or significant carotid stenosis, Echo ordered, Cont telemetry. Patient previously with PMHx of Afib was taken off AC for unknown reason, currently in SR
#XR showed mediastinal shift to R
CT shest unremarkable for pulmonary pathology
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
outpatient CT to be recommended - to follow with PCP
#Several mild compression fractures within the upper lumbar spin
#Multiple bilateral chronic rib fractures.
#Mildly displaced fractures of the posterior left 11th 12 ribs may be more acute in nature
No significant pain
most likely Fx 2/2 osteoporosis and trauma
No evidence for pneumothorax.
Can consider DEXA scan as outpatient vs bisphosphonates treatment with PCP
DVT ppx on hep
DNR/DNI - discussed in details with
I have spent at least 59min reviewing the chart, test results, communication with consultants, family and direct patient care
advised to have daughter to call to the hospital
Anticipated Discharge: 24 - 48 hours
Subjective/Interval History
-
Date of Service: January 02, 2024
Objective Data
-
Labs:
Laboratory Results
01/02/24 01/02/24
06:46 12:00
WBC 10.6
Hgb 12.7
Hct 35.1 L
Plt Count 192
Sodium 129 L Pending
Potassium 4.8 Pending
Chloride 100 Pending
Carbon Dioxide 20 L Pending
BUN 32 H Pending
Creatinine 1.0 Pending
Glucose 118 H Pending
Calcium 9.5 Pending
Total Bilirubin 0.8
AST 54 H
ALT 22
Alkaline Phosphatase 65
Vital Signs:
Vital Signs
Temp Pulse Resp BP Pulse Ox
97.2 F 61 16 159/67 96
01/02/24 07:35 01/02/24 07:35 01/02/24 07:35 01/02/24 07:35 01/02/24 07:35
I&O
01/01/24 01/02/24 01/03/24
06:59 06:59 06:59
Intake Total 1040 / 1040 720 / 720
Output Total 1250 / 1250
Balance 1040 / 1040 -530 / -530
Review of Systems
-
History Source: Patient
All other systems: Reviewed and negative
Physical Exam
-
General: No Apparent Distress
HEENT: Normocephalic
Respiratory: Clear to Auscultation
GI: Soft, Nontender and Nondistended
Musculoskeletal: No Clubbing, No Cyanosis and No Edema
Neuro: Awake, Alert and Oriented
Psych: Calm
[2024-01-02] MEDS: PROCARDIA XL (EXTENDED RELEASE) 60 MG PO (10:15)
[2024-01-02] MEDS: NSS 1000 IV (10:15)
[2024-01-02] MEDS: LOW STRENGTH ASPIRIN 81 MG PO (10:16)
[2024-01-02] MEDS: HEPARIN 5000 UNITS SC (10:16)
[2024-01-02] MEDS: CARDURA 4 MG PO (10:16)
[2024-01-02] MEDS: FLUSH (NSS) 1 FLUSH IV (10:16)
[2024-01-02 12:41] LABS: Blood Urea Nitrogen 30 mg/dl (7-17); Calcium 9.3 mg/dl (8.4-10.2); Carbon Dioxide 21 mmol/L (22-30); Chloride 100 mmol/L (98-107); Estimated Creatinine Clearance 26 ml/min; Glucose 125 mg/dl (70-99); Potassium 4.7 mmol/L (3.5-5.1); Sodium 131 mmol/L (135-145); eGFR 48.03
[2024-01-02] MEDS: LIPITOR 40 MG PO (18:52)
[2024-01-02] MEDS: HEPARIN SC ×2 (21:34→22:02)
[2024-01-02] MEDS: ALTACE 10 MG PO (21:47)
[2024-01-03] VITALS (7 sets, daily range): BP systolic 93–176; BP diastolic 43–63; PULSE 69; O2SAT 97
[2024-01-03 07:02] LABS: % Basophils 0.5 % (0-2); % Eosinophils 2.8 % (0-6); % Immature Granulocytes 0.2 % (0-0.5); % Lymphocytes 11.9 % (20.5-51.1); % Monocytes 8.9 % (1.7-9.3); % Neutrophils 75.7 % (42.2-75.2); Absolute Eosinophils 0.2 10^3/uL (0-0.7); Absolute Monocytes 0.7 10^3/uL (0.1-0.6); Absolute Neutrophils 6.2 10^3/uL (1.4-6.5); Hematocrit 31.3 % (37.0-47.0); Hemoglobin 11.1 g/dL (12.0-16.0); Mean Corp Hgb Conc. 35.5 g/dL (33.0-37.0); Mean Corpuscular Hgb 32.3 pg (27.0-31.0); Mean Platelet Volume 10.3 fL (7.4-10.4); Nucleated Red Blood Cells % 0 %; Platelet Count 177 10^3/uL (130-400); Red Blood Cell Count 3.44 10^6/uL (4.20-5.40); Red Cell Dist. Width 13.9 % (11.5-14.5); White Blood Cell Count 8.2 10^3/uL (4.8-10.8)
[2024-01-03 07:32] LABS: ALT (SGPT) 22 U/L (0-35); AST (SGOT) 45 U/L (14-36); Albumin 3.1 g/dl (3.5-5.0); Alkaline Phosphatase 64 U/L (38-126); Blood Urea Nitrogen 33 mg/dl (7-17); Calcium 8.9 mg/dl (8.4-10.2); Carbon Dioxide 22 mmol/L (22-30); Chloride 100 mmol/L (98-107); Estimated Creatinine Clearance 26 ml/min; Glucose 101 mg/dl (70-99); Potassium 4.3 mmol/L (3.5-5.1); Sodium 132 mmol/L (135-145); Total Bilirubin 0.6 mg/dl (0.2-1.3); Total Protein 5.7 g/dl (6.3-8.2); eGFR 48.03
[2024-01-03] MEDS: SYNTHROID PO (09:12)
[2024-01-03] MEDS: LOW STRENGTH ASPIRIN 81 MG PO (09:14)
[2024-01-03] MEDS: CARDURA 4 MG PO (09:15)
[2024-01-03] MEDS: PROCARDIA XL (EXTENDED RELEASE) 60 MG PO (09:15)
[2024-01-03] MEDS: HEPARIN SC ×2 (09:17→19:44)
--- NOTE | 2024-01-03 11:56 | W.PN.CD ---
Today's Communication / Plan
-
-Severe aortic stenosis, moderate mitral stenosis and other findings suggestive of cardiac amyloidosis
-Clinically deteriorating condition-with amyloidosis, need to discuss with the family for the plan with severe valvular disease
Impression / Plan
-
Non-ischemic myocardial injury - acute.
-Secondary to acute hypertensive emergency, GEMMA, hyperkalemia, hyponatremia.
-Trend troponin peaked at 1.6. Now troponin is 1.04
-She denies any anginal symptoms.
-Echo -01/01/2024: LVEF 65%. Findings suggestive of cardiac amyloid. Severely dilated bi-atria. Severe aortic stenosis with mean gradient 51 mmHg. Moderate MS mean gradient 5 mmHg.
-EKG sinus bradycardia 59 bpm, LVH with repolarization abnormality.
Hypertensive emergency - blood pressure significantly improved with Cardene.
-Likely secondary to medication noncompliance at home.
-Continue outpatient medications and monitor.
-LVH noted on EKG, no prior for comparison.
-Check echo.
Severe aortic stenosis.
-She and her deny history of valvular heart disease.
-Echo confirmed severe aortic stenosis. Aortic valve area 0.9 cm� with mean gradient 51 mmHg
-Also findings of cardiac amyloidosis. Severely dilated left and right atria. Thickened mitral valve and moderate mitral stenosis
-Extreme frailty with age and amyloid�conservative management for now. is really interested in fixing the valve. I am not sure he has clinical insight into the prognosis.
Hypothyroid - TSH 93.2, Free T4 0.43.
-Supposedly on levothyroxine 25 mcg daily at home.
-Management per hospitalist.
GEMMA - unsure of baseline/history.
-Monitor BMP.
Hyperkalemia -acute with potassium 6.2 on admission
-Potassium today 4.7.
-Outpatient Aldactone on hold.
Dementia - chronic.
-Concern for medication noncompliance and needing a higher level of care, per hospitalist.
Physical Exam
Vital Signs/Labs
Vital Signs
Temp Pulse Resp BP Pulse Ox
98.6 F 72 16 112/43 96
01/03/24 07:35 01/03/24 11:27 01/03/24 11:27 01/03/24 11:27 01/03/24 11:27
01/02/24 01/03/24 01/04/24
06:59 06:59 06:59
Actual Weight 47.656 kg
01/03/24 06:15
01/03/24 06:15
Triglycerides 84 mg/dl (10-149) 01/01/24 04:51
LDL Cholesterol, Calc 236 mg/dl 01/01/24 04:51
VLDL Cholesterol, Calc 16 mg/dl (0-30) 01/01/24 04:51
HDL Cholesterol 108 mg/dl 01/01/24 04:51
Free T4 0.43 ng/dl (0.78-2.19) L 12/31/23 17:32
LAB Results
12/31/23 12/31/23 01/01/24
18:30 23:14 04:51
Troponin I 0.079 H* 0.091 H* 0.186 H* D
01/01/24 01/01/24 01/02/24
11:29 22:25 06:46
Troponin I 1.100 H* D 1.600 H* 1.040 H*
Physical Exam
Constitutional: No acute distress, Comfortable and Confusion
EENT: Anicteric and Moist mucous membranes
Cardiovascular: Rhythm & rate is regular, Pedal edema is absent and JVD pressure is normal
Respiratory: Respiratory effort normal, Wheeze Absent and Rhonchi Absent
GI: Soft, Non tender and Normal bowel sounds
Neuro/Psych: Alert, Oriented (to person) and Other (Confused and somewhat agitated but sleepy)
Data Reviewed
-
Date of Service: January 03, 2024
Medical Decision Making: Reviewed Test Results and Independent Historian Assessment
EKG: Tracing Personally Visualized and interpreted
Echo: Report Reviewed by me
Medical Tests (PFT, Pathology etc): Discussed with Nurse, Discussed with Patient and Discussed with Family
Labs: Labs Reviewed by me
Old Records: Reviewed
--- NOTE | 2024-01-03 12:37 | W.PN.HOSP.TC ---
Today's Communication/Plan
-
added PM Nifedipine
IVF and CT abdomen/pelvis for adrenal mass
labs in AM
Assessment / Plan
Assessment / Plan
88yo F with PMHx of hypothyroidism, HTN sent from [facility] due to concerns that she needs to be in the higher level of care. Upon admission found hyperkalemia with mild Cr elevation, HTN urgency, elevated troponin and poor
hypothyroidism control. With signs of dementia questioning medication compliance.
Found acute on chronic lacunar strokes, NPH, L adrenal mass, severe , cardiac amyloidosis.
Could not get in touch with daughter to discuss recommendations for further follow ups: Abi [phone]
CM to work on SNF placement as patient was recommended for higher level of care initially in assisted living
A/P:
#HTN urgency
#Most likely non-ischemic cardiac injury with elevated troponins 2/2 HTN
#Severe
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
EKG with significant signs of LVH
adjust BP meds
cardiology consult
cont BP meds and follow trend, adjust as needed
#Hyperkalemia
#Mild hyponatremia
#GEMMA vs mild Cr elevation on CKD
resolving with hydration and holding Aldacton
follow BMP
#Ambulatory dysfunction with LLE weakness, concern for CVA
#mild leukocytosis -resolved
#Acute and subacute small lacunar CVA
#NPH
NIH scale
Neurochecks
neuro consult - medical mgmt
telemetry without clinically significant arrhythmia
MRA neck without LVO or significant carotid stenosis
ASA, statin
UA neg for infection
COVID-19, Influenza PCR neg
PT/OT
#Hs of L shoulder replacement
stable hardware on XR
#Elevated trop 1.1 discussed with cardio - non-ischemic injury
#Hypothyroidism discussed with endo - since no concern for mixedema - increase to 50mcg daily is sufficient with TSH reassessment in 4 weeks with pcp and possible further increase to weight-based 75mcg. AM cortison appropriate for age and time (5am)
acute CVA - ASA, statin, neuro consult, MRA without LVO or significant carotid stenosis, Echo ordered, Cont telemetry. Patient previously with PMHx of Afib was taken off AC for unknown reason, currently in SR
#XR showed mediastinal shift to R
CT shest unremarkable for pulmonary pathology
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/pelvis
IVF to reduce chamnce of kidney injury
#Several mild compression fractures within the upper lumbar spin
#Multiple bilateral chronic rib fractures.
#Mildly displaced fractures of the posterior left 11th 12 ribs may be more acute in nature
No significant pain
most likely Fx 2/2 osteoporosis and trauma
No evidence for pneumothorax.
Can consider DEXA scan as outpatient vs bisphosphonates treatment with PCP
DVT ppx on hep
DNR/DNI - discussed in details with
I have spent at least 59min reviewing the chart, test results, communication with consultants, family and direct patient care
DIscussed with in details: outpatient cardio follow up, follow up for L adrenal nodule with PCP, he verbalized understandingl
Anticipated Discharge: Within 24 hours
Subjective/Interval History
-
Date of Service: January 03, 2024
Objective Data
-
Labs:
Laboratory Results
01/03/24
06:15
WBC 8.2
Hgb 11.1 L
Hct 31.3 L
Plt Count 177
Sodium 132 L
Potassium 4.3
Chloride 100
Carbon Dioxide 22
BUN 33 H
Creatinine 1.1 H
Glucose 101 H
Calcium 8.9
Total Bilirubin 0.6
AST 45 H
ALT 22
Alkaline Phosphatase 64
Vital Signs:
Vital Signs
Temp Pulse Resp BP Pulse Ox
98.6 F 72 16 112/43 96
01/03/24 07:35 10/20/24 11:27 01/03/24 11:27 01/03/24 11:27 01/03/24 12:35
I&O
01/02/24 01/03/24 01/04/24
06:59 06:59 06:59
Intake Total 720 / 720 1125 / 1125 550 / 550
Output Total 1250 / 1250 530 / 530
Balance -530 / -530 595 / 595 550 / 550
Review of Systems
-
Unable to obtain full review of systems at this time due to: Dementia
History Source: Patient
Physical Exam
-
General: No Apparent Distress
Respiratory: Clear to Auscultation
Cardiac: Regular Rhythm and Murmur
GI: Soft, Nontender and Nondistended
Musculoskeletal: No Cyanosis
Skin: Warm
Neuro: Awake and Alert
Psych: Calm
[2024-01-03] MEDS: NSS 1000 IV (13:13)
[2024-01-03] MEDS: LIPITOR 40 MG PO (18:13)
[2024-01-03] MEDS: PROCARDIA XL (EXTENDED RELEASE) 30 MG PO (21:20)
[2024-01-03] MEDS: ALTACE 10 MG PO (21:21)
--- NOTE | 2024-01-04 04:08 | PTCARENOTE ---
Pt aaox1-2, denies pain. Pt pulled her IV out,unable to continue IV fluids ,refuses vital signs at times, refusing nursing care.Pt wants to sleep & wants to be left alone,trying to hit staff & screaming when trying to provide care. Pt on medsitter
for safety & on bedalarm. Pt oob to BSC with assist,voiding clear yellow.[employer] PERFORM[employer] supervisor quality control made aware of pt pulling on her telemetry,refuses to put it on,multiple attempt made to put IV & screaming to be left alone. Pt only let RN put her telemetry on,
refused IV & wants to sleep at this time. Pt encouraged po intake.Plan of care continued.
[2024-01-04] MEDS: SYNTHROID PO (06:44)
[2024-01-04 07:42] LABS: % Basophils 0.4 % (0-2); % Eosinophils 3.6 % (0-6); % Immature Granulocytes 0.4 % (0-0.5); % Monocytes 9.6 % (1.7-9.3); Absolute Eosinophils 0.3 10^3/uL (0-0.7); Absolute Lymphocytes 1.3 10^3/uL (1.2-3.4); Absolute Monocytes 0.8 10^3/uL (0.1-0.6); Absolute Neutrophils 5.6 10^3/uL (1.4-6.5); Hematocrit 30.5 % (37.0-47.0); Hemoglobin 11.3 g/dL (12.0-16.0); Mean Corpuscular Hgb 32.8 pg (27.0-31.0); Mean Corpuscular Volume 88.7 fL (81.0-99.0); Nucleated Red Blood Cells % 0 %; Platelet Count 183 10^3/uL (130-400); Red Blood Cell Count 3.44 10^6/uL (4.20-5.40); Red Cell Dist. Width 13.8 % (11.5-14.5)
[2024-01-04 07:55] VITALS: BP 174/64
--- NOTE | 2024-01-04 08:01 | VATNOTE ---
Called to place new PIV. Previous shift reported patient removed IV and was combative when attempting to place new PIV. PCN states patient needed to be restrained yesterday to place IV. Patient refusing to allow this RN to place new IV. PCN to
consult with PMD as to need for IV.
[2024-01-04 08:11] LABS: ALT (SGPT) 23 U/L (0-35); AST (SGOT) 46 U/L (14-36); Albumin 3.1 g/dl (3.5-5.0); Alkaline Phosphatase 50 U/L (38-126); Blood Urea Nitrogen 29 mg/dl (7-17); Calcium 8.8 mg/dl (8.4-10.2); Carbon Dioxide 19 mmol/L (22-30); Chloride 102 mmol/L (98-107); Estimated Creatinine Clearance 29 ml/min; Glucose 83 mg/dl (70-99); Potassium 4.3 mmol/L (3.5-5.1); Sodium 131 mmol/L (135-145); Total Bilirubin 0.5 mg/dl (0.2-1.3); Total Protein 5.8 g/dl (6.3-8.2); eGFR 53.85
[2024-01-04] MEDS: LOW STRENGTH ASPIRIN PO (08:15)
[2024-01-04] MEDS: CARDURA PO (08:15)
[2024-01-04] MEDS: HEPARIN SC ×2 (08:15→21:11)
[2024-01-04] MEDS: PROCARDIA XL (EXTENDED RELEASE) PO (08:15)
--- NOTE | 2024-01-04 08:29 | PTCARENOTE ---
pt AAO*2, disoriented to time. pt aware she is at the hospital, pt states she wants to go home and she doesn't want any medications or IV. attempted multiple times but pt refused. made aware.
--- NOTE | 2024-01-04 09:07 | W.PN.CD ---
Today's Communication / Plan
-
She is asymptomatic from her valve disease. No indication for replacement.
Continue nifedipine for blood pressure control.
Impression / Plan
-
Non-ischemic myocardial injury - acute.
-Secondary to acute hypertensive emergency, GEMMA, hyperkalemia, hyponatremia.
-Trend troponin peaked at 1.6. Now troponin is 1.04. Okay to stop trending
-She denies any anginal symptoms.
-Echo -01/01/2024: LVEF 65%. Findings suggestive of cardiac amyloid. Severely dilated bi-atria. Severe aortic stenosis with mean gradient 51 mmHg. Moderate MS mean gradient 5 mmHg.
-EKG sinus bradycardia 59 bpm, LVH with repolarization abnormality.
Hypertensive emergency - blood pressure significantly improved with Cardene.
-Likely secondary to medication noncompliance at home.
-Continue nifedipine 90 mg daily and monitor. Blood pressure has been labile so will not uptitrate at this time.
-LVH noted on EKG, no prior for comparison.
Severe asymptomatic aortic stenosis.
-She and her deny history of valvular heart disease.
-Echo confirmed severe aortic stenosis. Aortic valve area 0.9 cm� with mean gradient 51 mmHg
-Also findings of cardiac amyloidosis. Severely dilated left and right atria. Thickened mitral valve and moderate mitral stenosis
-Extreme frailty with age and amyloid
�She is asymptomatic and can do everything she wants at her place of living. Conservative management for now.
Hypothyroid - TSH 93.2, Free T4 0.43.
-Supposedly on levothyroxine 25 mcg daily at home.
-Management per hospitalist.
GEMMA, resolved- unsure of baseline/history.
-Monitor BMP.
Hyperkalemia -acute with potassium 6.2 on admission
-Potassium today 4.7.
-Outpatient Aldactone on hold.
Dementia - chronic.
-Concern for medication noncompliance and needing a higher level of care, per hospitalist.
Subjective: Wants to go home. No alarms on telemetry.
Physical Exam
Vital Signs/Labs
Vital Signs
Temp Pulse Resp BP Pulse Ox
98.8 F 73 16 174/64 97
01/04/24 07:51 01/04/24 07:51 01/04/24 07:51 01/04/24 07:55 01/04/24 07:51
01/04/24 07:08
01/04/24 07:08
Triglycerides 84 mg/dl (10-149) 01/01/24 04:51
LDL Cholesterol, Calc 236 mg/dl 01/01/24 04:51
VLDL Cholesterol, Calc 16 mg/dl (0-30) 01/01/24 04:51
HDL Cholesterol 108 mg/dl 01/01/24 04:51
Free T4 0.43 ng/dl (0.78-2.19) L 12/31/23 17:32
LAB Results
01/01/24 01/01/24 01/02/24
11:29 22:25 06:46
Troponin I 1.100 H* D 1.600 H* 1.040 H*
Physical Exam
Constitutional: No acute distress and Comfortable
Cardiovascular: Rhythm & rate is regular, JVD pressure is normal and Systolic murmur present
Respiratory: Respiratory effort normal
Data Reviewed
-
Date of Service: January 04, 2024
Medical Decision Making: Reviewed Test Results, Independent Historian Assessment, Test Interpretation and Review of Case with other Provider
EKG: Tracing Personally Visualized and interpreted
Echo: Report Reviewed by me
Labs: Labs Reviewed by me
Total Time Spent with Patient (in minutes): 35
--- NOTE | 2024-01-04 09:38 | VATNOTE ---
Per PCN, no IV needs at this time.
--- NOTE | 2024-01-04 10:42 | CM ---
Addendum entered by Antonieta Eason 01/04/24 11:06:
Per hospitalist pt is not medically ready to d/c today, maybe tomorrow
[facility] updated
Original Note:
CM spoke w/ [facility] re SNF acceptance
[facility] confirmed bed for pt either today or tomorrow if she is medically clear
[facility] cannot accept pt after 2:30 pm
[facility] confirmed she will complete auth once d/c day is confirmed
CM TT hospitalist re d/c. CM was informed once pt is seen d/c can be confirmed
Updated clinicals sent via [facility]
Will need ambulance transport
Plan: [facility] via ambulance transport
[2024-01-04] MEDS: PROCARDIA XL (EXTENDED RELEASE) 60 MG PO (11:33)
[2024-01-04] MEDS: CARDURA 4 MG PO (11:34)
[2024-01-04] MEDS: CITROMA 300 ML PO (11:34)
[2024-01-04] MEDS: LOW STRENGTH ASPIRIN 81 MG PO (11:34)
[2024-01-04 11:42] VITALS: BP 191/65
[2024-01-04] MEDS: NSS IV (12:10)
--- NOTE | 2024-01-04 12:13 | CON.ONC ---
Documented by User: Casie Oneill MD, Resident 01/04/24 12:36
Impression
Impression
88-year-old female past medical history of hypothyroidism, hypertension, dementia sent from independent living [facility] due to frequent falls. Patient was found to have hypokalemia, hypertension, and hyponatremia upon admission.
Hypothyroidism is not controlled (TSH elevated). MRI brain showed acute infarct in posterior right basal ganglia. On chest CT patient had bilateral pleural effusion, pericardial effusion, and likely acute fracture of the posterior 12th rib and
left-sided mass of unknown origin in the abdomen. Abdominal CT showed 3.6 cm left adrenal mass (necrotic metastatic lesion versus primary adrenal) with distended CBD in the region of pancreatic head. Patient wants to go home, is ambulatory and can
walk with a walker.
Plan
Plan
# Left adrenal mass
- MRI abdomen for further evaluation
- Check adrenal function (a.m. cortisol and ACTH)
# Hypothyroidism
- Recheck TSH
- Continue levothyroxine
# Hypertensive emergency
- Likely secondary to medication noncompliance
- Continue blood pressure medications
# Hyperkalemia
-Resolved, potassium now 4.3
# Dementia, chronic
- Concern for medication noncompliance
# Nonischemic myocardial injury
- Secondary to hypertensive emergency, GEMMA, hyperkalemia, hyponatremia
- Troponin downtrending
DNR
DVT prophylaxis heparin
Patient History
History of Present Illness
88-year-old female with past medical history of hypertension, dementia, hypothyroidism presenting with frequent falls at home. Patient lives independently with at [facility]. Per , patient has had recent weakness in her left
lower extremity.
Past-Medical/Surgical History
Dementia
Hypothyroidism
Hypertension
History of left shoulder replacement
Patient Medication
�Medication �Instructions �Recorded �Confirmed �Last Taken �Type
ascorbic acid (vitamin C) 500 mg 500 mg PO DAILY 12/31/23 12/31/23 Unknown History
chewable tablet (Vitamin C)
cholecalciferol (vitamin D3) 50 50 mcg PO DAILY 12/31/23 12/31/23 Unknown History
mcg (2,000 unit) tablet
doxazosin 4 mg tablet 4 mg PO DAILY 12/31/23 12/31/23 Unknown History
levothyroxine 25 mcg tablet 25 mcg PO DAILY 12/31/23 12/31/23 Unknown History
ramipril 10 mg capsule 10 mg PO DAILY 12/31/23 12/31/23 Unknown History
spironolactone 50 mg tablet 50 mg PO DAILY 12/31/23 12/31/23 Unknown History
vit C 250 mg-vit E 90 mg-zinc 40 1 tab PO BID 12/31/23 12/31/23 Unknown History
mg-copper 1 [id number]
capsule (PreserVision AREDS-2)
Active Medications
Generic Name Dose Route Start Last Admin
Trade Name Freq PRN Reason Stop Dose Admin
Acetaminophen 650 mg 12/31/23 21:37
Acetaminophen 325 Mg Tablet PO 01/28/24 21:36
Q4HPRN PRN
Mild Pain / Temp > 101
Aspirin 81 mg 01/02/24 08:00 01/04/24 11:34
Aspirin 81 Mg Chewable Tablet PO 01/30/24 07:59 81 mg
DAILY FREDDY Administration
Atorvastatin Calcium 40 mg 01/02/24 18:00 01/03/24 18:13
Atorvastatin (Lipitor) 40 Mg Tablet PO 01/30/24 17:59 40 mg
QPM FREDDY Administration
Doxazosin Mesylate 4 mg 01/01/24 08:00 01/04/24 11:34
Doxazosin 4 Mg Tablet PO 01/29/24 07:59 4 mg
DAILY FREDDY Administration
Heparin Sodium 5,000 units 01/01/24 20:00 01/04/24 08:15
Heparin 5,000 Units/Ml 1 Ml Vial SC 01/29/24 19:59 Not Given
Q12 FREDDY
Hydralazine HCl 10 mg 12/31/23 22:53 01/01/24 23:36
Hydralazine 20 Mg/Ml Vial IV 01/28/24 22:52 10 mg
Q6HPRN PRN Administration
SBP > 180
Sodium Chloride 1,000 mls @ 70 mls/hr 01/03/24 12:45 01/04/24 12:10
Nss IV 01/04/24 17:19 Not Given
.[id number] FREDDY
Labetalol HCl 10 mg 12/31/23 21:37 01/01/24 05:28
Labetalol Hcl 5 Mg/1 Ml (20 Mg/4 Ml) Injection IV 01/28/24 21:36 10 mg
Q6HPRN PRN Administration
SBP > 180
Levothyroxine Sodium 50 mcg 01/02/24 06:00 01/04/24 06:44
Levothyroxine 50 Mcg Tablet PO 01/30/24 05:59 Not Given
DAILY@0600 FREDDY
Nifedipine 60 mg 01/01/24 08:00 01/04/24 11:33
Nifedipine 60 Mg Extended Release Tablet PO 01/29/24 07:59 60 mg
DAILY FREDDY Administration
Nifedipine 30 mg 01/03/24 22:00 01/03/24 21:20
Nifedipine 30 Mg Extended Release Tablet PO 01/31/24 21:59 30 mg
HS FREDDY Administration
Ramipril 10 mg 01/02/24 22:00 01/03/24 21:21
Ramipril (Altace) 10 Mg Capsule PO 01/30/24 21:59 10 mg
HS FREDDY Administration
Sodium Chloride 0 flush 12/31/23 23:00 01/02/24 10:16
Sodium Chloride 0.9% (Flush) Syringe IV 01/28/24 22:59 1 flush
PER PROTOCOL FREDDY Administration
Review of Systems
-
Unable to obtain full review of systems at this time due to: Dementia
History Source: Family
Physical Exam
-
General: No Apparent Distress
Labs
Lab Results
WBC 8.0 10^3/uL (4.8-10.8) 01/04/24 07:08
RBC 3.44 10^6/uL (4.20-5.40) L 01/04/24 07:08
Hgb 11.3 g/dL (12.0-16.0) L 01/04/24 07:08
Hct 30.5 % (37.0-47.0) L 01/04/24 07:08
MCV 88.7 fL (81.0-99.0) 01/04/24 07:08
MCH 32.8 pg (27.0-31.0) H 01/04/24 07:08
MCHC 37.0 g/dL (33.0-37.0) 01/04/24 07:08
RDW 13.8 % (11.5-14.5) 01/04/24 07:08
Plt Count 183 10^3/uL (130-400) 01/04/24 07:08
MPV 10.0 fL (7.4-10.4) 01/04/24 07:08
Abs Immat Gran (auto) 0.0 10^3/uL (0-0.05) 01/04/24 07:08
Absolute Neuts (auto) 5.6 10^3/uL (1.4-6.5) 01/04/24 07:08
Absolute Lymphs (auto) 1.3 10^3/uL (1.2-3.4) 01/04/24 07:08
Absolute Monos (auto) 0.8 10^3/uL (0.1-0.6) H 01/04/24 07:08
Absolute Eos (auto) 0.3 10^3/uL (0-0.7) 01/04/24 07:08
Absolute Basos (auto) 0.0 10^3/uL (0-0.2) 01/04/24 07:08
Immature Gran % 0.4 % (0-0.5) 01/04/24 07:08
Neutrophils % 70.0 % (42.2-75.2) 01/04/24 07:08
Lymphocytes % 16.0 % (20.5-51.1) L 01/04/24 07:08
Monocytes % 9.6 % (1.7-9.3) H 01/04/24 07:08
Eosinophils % 3.6 % (0-6) 01/04/24 07:08
Basophils % 0.4 % (0-2) 01/04/24 07:08
Creatinine 1.0 mg/dL (0.6-1.0) 01/04/24 07:08
Vital Signs
Vital Signs
Temp Pulse Resp BP Pulse Ox
98.8 F 70 20 191/65 98
01/04/24 07:51 01/04/24 11:42 01/04/24 11:42 01/04/24 11:42 01/04/24 11:42

Documented by User: Shirley Alfaro MD 01/04/24 19:51
Plan
Plan
# Left adrenal mass
- MRI abdomen for further evaluation
- Check adrenal function (a.m. cortisol and ACTH)
# Hypothyroidism
- Recheck TSH
- Continue levothyroxine
# Hypertensive emergency
- Likely secondary to medication noncompliance
- Continue blood pressure medications
# Hyperkalemia
-Resolved, potassium now 4.3
# Dementia, chronic
- Concern for medication noncompliance
# Nonischemic myocardial injury
- Secondary to hypertensive emergency, GEMMA, hyperkalemia, hyponatremia
- Troponin downtrending
DNR
DVT prophylaxis heparin
Attending Supplement:
Met with pt's daughter Martina and pt's .
She has become more combative and confused recently.
She needs placement, cannot manage her.
Family feel her needs would be best served in nursing facility setting rather than assisted living. They live at [facility].
Pt would not be candidate for treatment for adrenal mass and she does not appear to be symptomatic from it.
Family prefer to forgo further workup of biliary ductal dilatation and adrenal mass, so I did not order adrenal MRI or labs (which she is likely to refuse.)
Discussed possiblity of hospice in setting of dementia, stroke. Also discussed best supportive care.
They are anxious to discuss option for placement and level of care with discharge planning.
Thank you for consult.
--- NOTE | 2024-01-04 14:24 | W.PN.HOSP.TC ---
Today's Communication/Plan
-
Watch blood pressure encourage patient to take medicines
Treat constipation
Onc eval
If blood pressure continues to run high we may need to replace ramipril with Aldactone
Possible discharge tomorrow.
Assessment / Plan
Assessment / Plan
88yo F with PMHx of hypothyroidism, HTN sent from [facility] due to concerns that she needs to be in the higher level of care. Upon admission found hyperkalemia with mild Cr elevation, HTN urgency, elevated troponin and poor
hypothyroidism control. With signs of dementia questioning medication compliance.
CT abdomen pelvis-3.6 cm enhancing left adrenal mass necrotic metastatic lesion versus primary neoplasm. Distended CBD in the region of pancreatic head. Constipation with large colonic fecal burden in the abdomen. Small bilateral pleural
effusions with adjacent compressive atelectasis. Small pericardial effusion. Cardiomegaly. Coronary artery calcification. Aortic valve calcification. Mitral annular calcification. Bilateral rib fractures old , some acute which is posterior
12th rib fracture. Age-indeterminate compression fractures T12, L1, L2, L3
MRI of the brain-5 mm focus of restricted diffusion within the posterior right basal ganglia consistent with acute infarction. Moderate global volume loss with sequelae of mild small vessel ischemic disease and prior lacunar infarctions of the
bilateral basal ganglia and right cerebellar hemisphere.
01/01/2024-moderate to severe concentric LVH. EF 65 to 70%. Findings suggestive of cardiac amyloid. Normal RV size and function. Severely dilated LA. Moderate to severe dilated RA. Thickened mitral valve leaflets with significant mitral
annular calcification. Moderate MS. Severe . Moderate AI. Mild TR. Pulmonary artery pressure 35 to 40 mmHg. Small pericardial effusion.
A/P:
#HTN emergency-pressure improved with Cardene.-continue Cardura, nifedipine 60 mg in the morning, 30 mg at night. Altace 10 mg at night
# Valvular heart disease-Severe , moderate MS, moderate AI, mild TR
#Elevated trop 1.1 - non-ischemic injury secondary to hypertensive emergency
#EKG with significant signs of LVH-Most likely cardiac amyloidosis
# Constipation-mag citrate ordered
#Hyperkalemia
#Mild hyponatremia
#GEMMA vs mild Cr elevation on CKD
resolving with hydration and holding Aldactone
follow BMP
#Ambulatory dysfunction
#Acute and subacute small lacunar CVA
#NPH
neuro consult noted - medical mgmt
telemetry without clinically significant arrhythmia
MRA neck without LVO or significant carotid stenosis
ASA, statin
PT OT
#Hs of L shoulder replacement-stable hardware on XR
#Hypothyroidism Dr. Kamara discussed with endo - since no concern for myxedema - increase to 50mcg daily is sufficient with TSH reassessment in 4 weeks with pcp and possible further increase to weight-based 75mcg. AM cortisol appropriate for age
and time (5am)
#Acute CVA - ASA, statin, neuro consult, MRA without LVO or significant carotid stenosis, Echo ordered, Cont telemetry. Patient previously with PMHx of Afib was taken off AC for unknown reason, currently in SR
#CXR showed mediastinal shift to R
CT chest unremarkable for pulmonary pathology
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 abdomen/pelvis noted
Met vs other
Opinion fro Oncology with all the fractures and amb dysfunction .
#Several mild compression fractures within the upper lumbar spine
#Multiple bilateral chronic rib fractures.
#Mildly displaced fractures of the posterior left 11th 12 ribs may be more acute in nature
No significant pain
most likely Fx 2/2 osteoporosis and trauma
No evidence for pneumothorax.
Can consider DEXA scan as outpatient vs bisphosphonates treatment with PCP
#Medicine Non compliance
#Cognitive dysfunction
#DVT ppx on hep
#DNR/DNI
D/W RN
Daughter Abi updated at bedside in detail regarding MRI finding, adrenal mass, rib fractures, patient's noncompliance with medicines. Palliative care evaluation as outpatient discussed family does not seem to be opposed to that.
Abi [phone]
time over 50 min
Anticipated Discharge: Within 24 hours
Subjective/Interval History
-
Date of Service: January 04, 2024
Objective Data
-
Labs:
Laboratory Results
01/04/24
07:08
WBC 8.0
Hgb 11.3 L
Hct 30.5 L
Plt Count 183
Sodium 131 L
Potassium 4.3
Chloride 102
Carbon Dioxide 19 L
BUN 29 H
Creatinine 1.0
Glucose 83
Calcium 8.8
Total Bilirubin 0.5
AST 46 H
ALT 23
Alkaline Phosphatase 50
Vital Signs:
Vital Signs
Temp Pulse Resp BP Pulse Ox
98.8 F 70 20 191/65 98
01/04/24 07:51 01/04/24 11:42 01/04/24 11:42 01/04/24 11:42 01/04/24 13:46
I&O
01/03/24 01/04/24 01/05/24
06:59 06:59 06:59
Intake Total 1125 / 1125 550 / 550
Output Total 530 / 530 1250 / 1250
Balance 595 / 595 -700 / -700
[2024-01-04 15:15] VITALS: BP 107/40
[2024-01-04] MEDS: LIPITOR 40 MG PO (18:15)
[2024-01-04] MEDS: SENOKOT 8.6 MG PO (18:15)
[2024-01-04] MEDS: MIRALAX 17 GRAMS PO (18:15)
[2024-01-04] MEDS: HALDOL 1 MG PO (19:17)
[2024-01-04 19:45] VITALS: BP 151/66
--- NOTE | 2024-01-04 20:00 | PTCARENOTE ---
Addendum entered by Bird Palma RN 01/05/24 04:52:
Pt had two large bowel movements and appears to be more calm. RN removed restraints @02:30. Pt is resting in bed comfortably w/ call oneil within reach.
Original Note:
Pt refused to stay in bed and was unsteady on her feet after using the commode. RN unable to get a 1:1. Pt became agitated and physical with staff attempting to look for her purse after RN stated several times her purse is not here. RN reached out
to COMPLIANCE MONITOR- ordered restraints non-violent soft limb L&R wrist/ 4 rail. Pt is resting in bed with call oneil within reach.
[2024-01-04] MEDS: COLACE 100 MG PO (21:11)
[2024-01-04] MEDS: SENOKOT 17.2 MG PO (21:12)
[2024-01-04] MEDS: PROCARDIA XL (EXTENDED RELEASE) 30 MG PO (21:14)
[2024-01-04] MEDS: ALTACE 10 MG PO (21:15)
[2024-01-04 23:05] VITALS: BP 182/62
--- NOTE | 2024-01-05 02:45 | W.PN.UPDATE ---
Update Note
Progress Note Update
RN reports patient constantly getting out of bed and now is getting with the nurses. Patient had just received the Haldol. unable to do 1:1 super vision due to staffing. Restraints ordered. will wean off as patient calms down. Denies any pain, or
discomfort, vitals signs stable.
--- NOTE | 2024-01-05 04:16 | W.PN.UPDATE ---
Update Note
Progress Note Update
RN stated patient had few loose BM's and after that patient had calm down, Restraints were taken off around 0230. patient resting in bed at present, Bed alarm maintained for safety.
[2024-01-05 05:00] VITALS: BP 144/53
[2024-01-05] MEDS: SYNTHROID 50 MCG PO (05:57)
[2024-01-05 07:35] VITALS: BP 138/97
--- NOTE | 2024-01-05 09:23 | W.PN.UPDATE ---
Update Note
Progress Note Update
No plans for further onc work-up per family's wishes. We will sign off. Please call with any questions.
[2024-01-05] MEDS: HEPARIN 5000 UNITS SC (10:31)
[2024-01-05] MEDS: CARDURA 4 MG PO (10:32)
[2024-01-05] MEDS: PROCARDIA XL (EXTENDED RELEASE) 60 MG PO (10:32)
[2024-01-05] MEDS: LOW STRENGTH ASPIRIN 81 MG PO (10:32)
[2024-01-05] MEDS: COLACE PO ×2 (10:33→20:32)
[2024-01-05] MEDS: SENOKOT PO ×2 (10:33→20:32)
[2024-01-05] MEDS: MIRALAX PO (10:33)
--- NOTE | 2024-01-05 14:03 | CM ---
Chart reviewed. Pt currently on Med[facility].
Per [facility], pt would need to be off monitoring and restraints for 24 hours before returning
Restraints removed yesterday
[facility] updated via TC
Plan: Return to [facility] [place]
--- NOTE | 2024-01-05 14:39 | PTCARENOTE ---
Patient removed from remote observation at 12pm today. Patient for discharge tomorrow.
[2024-01-05 14:53] LABS: Blood Urea Nitrogen 36 mg/dl (7-17); Calcium 9.2 mg/dl (8.4-10.2); Carbon Dioxide 24 mmol/L (22-30); Chloride 95 mmol/L (98-107); Estimated Creatinine Clearance 20 ml/min; Glucose 108 mg/dl (70-99); Magnesium 2.3 mg/dl (1.6-2.3); Potassium 5.1 mmol/L (3.5-5.1); Sodium 126 mmol/L (135-145); eGFR 35.96
--- NOTE | 2024-01-05 15:17 | W.PN.HOSP.TC ---
Today's Communication/Plan
-
Serum osmolality, urine sodium and urine osmolality
Check bladder scan
Assessment / Plan
Assessment / Plan
88yo F with PMHx of hypothyroidism, HTN sent from [facility] due to concerns that she needs to be in the higher level of care. Upon admission found hyperkalemia with mild Cr elevation, HTN urgency, elevated troponin and poor
hypothyroidism control. With signs of dementia questioning medication compliance.
CT abdomen pelvis-3.6 cm enhancing left adrenal mass necrotic metastatic lesion versus primary neoplasm. Distended CBD in the region of pancreatic head. Constipation with large colonic fecal burden in the abdomen. Small bilateral pleural
effusions with adjacent compressive atelectasis. Small pericardial effusion. Cardiomegaly. Coronary artery calcification. Aortic valve calcification. Mitral annular calcification. Bilateral rib fractures old , some acute which is posterior
12th rib fracture. Age-indeterminate compression fractures T12, L1, L2, L3
MRI of the brain-5 mm focus of restricted diffusion within the posterior right basal ganglia consistent with acute infarction. Moderate global volume loss with sequelae of mild small vessel ischemic disease and prior lacunar infarctions of the
bilateral basal ganglia and right cerebellar hemisphere.
01/01/2024-moderate to severe concentric LVH. EF 65 to 70%. Findings suggestive of cardiac amyloid. Normal RV size and function. Severely dilated LA. Moderate to severe dilated RA. Thickened mitral valve leaflets with significant mitral
annular calcification. Moderate MS. Severe . Moderate AI. Mild TR. Pulmonary artery pressure 35 to 40 mmHg. Small pericardial effusion.
confused
CVS: S1-S2 normal, sm at aa,, dm at apex
Chest: CTA B/L
Abdomen: Soft, NT / Bowel sounds present
Extremities: No edema
FIRE OFFICIAL: Non focal exam, confused
A/P:
#HTN emergency-pressure improved with Cardene.-continue Cardura, nifedipine 60 mg in the morning, 30 mg at night. Altace 10 mg at night
#Valvular heart disease-Severe , moderate MS, moderate AI, mild TR
#Elevated trop 1.1 - non-ischemic injury secondary to hypertensive emergency
#EKG with significant signs of LVH-Most likely cardiac amyloidosis
#Constipation-resolved
#Hyperkalemia- better
# Hyponatremia. Check serum muscularity, urine osmolality and urine sodium.
#GEMMA vs mild Cr elevation on CKD
Creatinine elevated today. Patient did have small bowel movement yesterday. Check bladder scan and urine sodium to see if she needs gentle hydration.
#Ambulatory dysfunction
#Acute and subacute small lacunar CVA
neuro consult noted - medical mgmt
telemetry without clinically significant arrhythmia
MRA neck without LVO or significant carotid stenosis
ASA, statin
PT OT
#Hs of L shoulder replacement-stable hardware on XR
#Hypothyroidism Dr. Kamara discussed with endo - since no concern for myxedema - increase to 50mcg daily is sufficient with TSH reassessment in 4 weeks with pcp and possible further increase to weight-based 75mcg. AM cortisol appropriate for age
and time (5am)
#Acute CVA - ASA, statin, neuro consult, MRA without LVO or significant carotid stenosis, Echo ordered, Cont telemetry. Patient previously with PMHx of Afib was taken off AC for unknown reason, currently in SR
#CXR showed mediastinal shift to R
CT chest unremarkable for pulmonary pathology
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 abdomen/pelvis noted
Met vs other
Oncology eval appreciated.
Patient's family does not want any further workup
#Several mild compression fractures within the upper lumbar spine
#Multiple bilateral chronic rib fractures.
#Mildly displaced fractures of the posterior left 11th 12 ribs may be more acute in nature
No significant pain
most likely Fx 2/2 osteoporosis and trauma
No evidence for pneumothorax.
Can consider DEXA scan as outpatient vs bisphosphonates treatment with PCP
#Medicine Non compliance
#Cognitive dysfunction
#DVT ppx on hep
#DNR/DNI
D/W RN
Discussed with case management
Abi [phone]
Anticipated Discharge: Within 24 hours
Subjective/Interval History
-
Date of Service: January 05, 2024
Objective Data
-
Labs:
Laboratory Results
01/05/24
14:09
Sodium 126 L
Potassium 5.1
Chloride 95 L
Carbon Dioxide 24
BUN 36 H
Creatinine 1.4 H
Glucose 108 H
Calcium 9.2
Vital Signs:
Vital Signs
Temp Pulse Resp BP Pulse Ox
98 F 69 16 138/97 97
01/05/24 07:35 01/05/24 10:32 01/05/24 07:35 01/05/24 10:32 01/05/24 14:40
I&O
01/04/24 01/05/24 01/06/24
06:59 06:59 06:59
Intake Total 550 / 550 780 / 780
Output Total 1250 / 1250 400 / 400
Balance -700 / -700 380 / 380
[2024-01-05 15:22] VITALS: BP 131/56
--- NOTE | 2024-01-05 15:56 | PTCARENOTE ---
Na this afternoon - 126. Specimen will be collected with next urination. Hospitalist aware.
[2024-01-05 16:47] LABS: Osmolality Serum 276 mOsm/kg (275-300)
[2024-01-05 16:59] VITALS: BP 131/56; PULSE 67; O2SAT 95
[2024-01-05] MEDS: LIPITOR 40 MG PO (17:19)
[2024-01-05] MEDS: HEPARIN SC (20:32)
[2024-01-05] MEDS: ALTACE 10 MG PO (21:38)
[2024-01-05] MEDS: PROCARDIA XL (EXTENDED RELEASE) 30 MG PO (21:39)
[2024-01-05 22:08] LABS: Osmolality Urine 382 mOsm/kg (300-900)
[2024-01-05 22:41] LABS: Urine Sodium 40 mmol/L (30-90)
[2024-01-05 23:00] VITALS: BP 153/51
[2024-01-06] MEDS: SYNTHROID 50 MCG PO (05:44)
[2024-01-06 07:50] VITALS: BP 179/58
[2024-01-06] MEDS: CARDURA 4 MG PO (09:44)
[2024-01-06] MEDS: LOW STRENGTH ASPIRIN 81 MG PO (09:45)
[2024-01-06] MEDS: PROCARDIA XL (EXTENDED RELEASE) 60 MG PO (09:45)
[2024-01-06] MEDS: COLACE PO ×2 (09:54→21:13)
[2024-01-06] MEDS: MIRALAX PO (09:54)
[2024-01-06] MEDS: SENOKOT PO ×2 (09:54→21:14)
[2024-01-06] MEDS: HEPARIN SC ×2 (09:54→21:13)
--- NOTE | 2024-01-06 10:08 | CM ---
Addendum entered by Antonieta Eason 01/06/24 14:50:
Per hospitalist, pt can d/c today
CM spoke w/ [facility] re pt being medically clear to d/c.
Per [facility], they are unable to accept pt today as they can't take anyone after 2 pm
Shu stated pt can return tomorrow. Shu stated pt will also need a covid test as well
CM informed hospitalist via TT
Pt will need ambulance transport.
[facility]

[facility] will call back w/ report number
Plan: [facility]
Original Note:
Pt seen at bedside.
Labs have been ordered. Per nurse pt has been refusing to get labs drawn but will have them re-attempted
CM made hospitalist aware via TT
Per hospitalist pt can d/c if labs are normal
Will need ambulance transport at d/c
Plan: [facility]
[2024-01-06 11:18] LABS: Blood Urea Nitrogen 37 mg/dl (7-17); Calcium 9.2 mg/dl (8.4-10.2); Carbon Dioxide 23 mmol/L (22-30); Chloride 96 mmol/L (98-107); Estimated Creatinine Clearance 22 ml/min; Glucose 110 mg/dl (70-99); Potassium 4.9 mmol/L (3.5-5.1); Sodium 129 mmol/L (135-145); eGFR 39.31
[2024-01-06 11:31] VITALS: BP 156/53; PULSE 61; O2SAT 95
[2024-01-06 11:40] VITALS: BP 156/53; PULSE 62; O2SAT 95
--- NOTE | 2024-01-06 14:16 | W.PN.HOSP.TC ---
Today's Communication/Plan
-
Christy cates take pt today
Assessment / Plan
Assessment / Plan
88yo F with PMHx of hypothyroidism, HTN sent from [facility] due to concerns that she needs to be in the higher level of care. Upon admission found hyperkalemia with mild Cr elevation, HTN urgency, elevated troponin and poor
hypothyroidism control. With signs of dementia questioning medication compliance.
CT abdomen pelvis-3.6 cm enhancing left adrenal mass necrotic metastatic lesion versus primary neoplasm. Distended CBD in the region of pancreatic head. Constipation with large colonic fecal burden in the abdomen. Small bilateral pleural
effusions with adjacent compressive atelectasis. Small pericardial effusion. Cardiomegaly. Coronary artery calcification. Aortic valve calcification. Mitral annular calcification. Bilateral rib fractures old , some acute which is posterior
12th rib fracture. Age-indeterminate compression fractures T12, L1, L2, L3
MRI of the brain-5 mm focus of restricted diffusion within the posterior right basal ganglia consistent with acute infarction. Moderate global volume loss with sequelae of mild small vessel ischemic disease and prior lacunar infarctions of the
bilateral basal ganglia and right cerebellar hemisphere.
01/01/2024-moderate to severe concentric LVH. EF 65 to 70%. Findings suggestive of cardiac amyloid. Normal RV size and function. Severely dilated LA. Moderate to severe dilated RA. Thickened mitral valve leaflets with significant mitral
annular calcification. Moderate MS. Severe . Moderate AI. Mild TR. Pulmonary artery pressure 35 to 40 mmHg. Small pericardial effusion.
CVS: S1-S2 normal, sm at aa,, dm at apex
Chest: CTA B/L
Abdomen: Soft, NT / Bowel sounds present
Extremities: No edema
KEYBOARDING CLERK: Non focal exam, confused
A/P:
# HTN emergency-pressure improved with Cardene-continue Cardura, nifedipine 60 mg in the morning, 30 mg at night. Altace 10 mg at night
# Valvular heart disease-Severe , moderate MS, moderate AI, mild TR
# Elevated trop 1.1 - non-ischemic injury secondary to hypertensive emergency
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
# Constipation-resolved
# Hyperkalemia- better
# Hyponatremia. SIADH- Free water restriction. Sodium better
#GEMMA vs mild Cr elevation on CKD- Better
#Ambulatory dysfunction
#Acute and subacute small lacunar CVA
neuro consult noted - medical mgmt
telemetry without clinically significant arrhythmia
MRA neck without LVO or significant carotid stenosis
ASA, statin
PT OT
#Hs of L shoulder replacement-stable hardware on XR
#Hypothyroidism Dr. Kamara discussed with endo - since no concern for myxedema - increase to 50mcg daily is sufficient with TSH reassessment in 4 weeks with pcp and possible further increase to weight-based 75mcg. AM cortisol appropriate for age
and time (5am)
#Acute CVA - ASA, statin, neuro consult, MRA without LVO or significant carotid stenosis, Echo ordered, Cont telemetry. Patient previously with PMHx of Afib was taken off AC for unknown reason, currently in SR
#CXR showed mediastinal shift to R
CT chest unremarkable for pulmonary pathology
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 abdomen/pelvis noted
Met vs other
Oncology eval appreciated.
Patient's family does not want any further workup
#Several mild compression fractures within the upper lumbar spine
#Multiple bilateral chronic rib fractures.
#Mildly displaced fractures of the posterior left 11th 12 ribs may be more acute in nature
No significant pain
most likely Fx 2/2 osteoporosis and trauma
No evidence for pneumothorax.
Can consider DEXA scan as outpatient vs bisphosphonates treatment with PCP
#Medicine Non compliance
#Cognitive dysfunction
#DVT ppx on hep
#DNR/DNI
D/W RN
Discussed with case management
Abi [phone]
D/W at bed side
Anticipated Discharge: Within 24 hours
Subjective/Interval History
-
Date of Service: January 06, 2024
Objective Data
-
Labs:
Laboratory Results
01/06/24
10:37
Sodium 129 L
Potassium 4.9
Chloride 96 L
Carbon Dioxide 23
BUN 37 H
Creatinine 1.3 H
Glucose 110 H
Calcium 9.2
Vital Signs:
Vital Signs
Temp Pulse Resp BP Pulse Ox
97.8 F 72 18 179/58 98
01/06/24 07:50 01/06/24 09:44 01/06/24 07:50 01/06/24 09:44 01/06/24 12:15
I&O
01/05/24 01/06/24 01/07/24
06:59 06:59 06:59
Intake Total 780 / 780 720 / 720
Output Total 400 / 400
Balance 380 / 380 720 / 720
[2024-01-06 15:20] VITALS: BP 114/49
[2024-01-06] MEDS: TYLENOL 650 MG PO (15:45)
[2024-01-06 15:52] LABS: COVID-19 Antigen Negative (Negative)
--- NOTE | 2024-01-06 16:40 | W.PN.UPDATE ---
Update Note
Progress Note Update
Chart reviewed: re: hyponatremia
discuss case with Hospitalist
will provide FR and samsca 7.5 mg times one
[2024-01-06] MEDS: SAMSCA 7.5 MG PO (17:24)
[2024-01-06] MEDS: LIPITOR 40 MG PO (17:24)
[2024-01-06] MEDS: ALTACE 10 MG PO (21:21)
[2024-01-06] MEDS: PROCARDIA XL (EXTENDED RELEASE) 30 MG PO (21:25)
[2024-01-07] MEDS: SYNTHROID 50 MCG PO (05:51)
[2024-01-07 07:30] VITALS: BP 169/58
[2024-01-07 08:13] LABS: Platelet Count 220 10^3/uL (130-400)
[2024-01-07 08:27] LABS: Blood Urea Nitrogen 39 mg/dl (7-17); Calcium 9.1 mg/dl (8.4-10.2); Carbon Dioxide 25 mmol/L (22-30); Chloride 100 mmol/L (98-107); Estimated Creatinine Clearance 22 ml/min; Glucose 82 mg/dl (70-99); Potassium 4.5 mmol/L (3.5-5.1); Sodium 133 mmol/L (135-145); eGFR 39.31
[2024-01-07] MEDS: COLACE PO (09:00)
[2024-01-07] MEDS: CARDURA 4 MG PO (09:00)
[2024-01-07] MEDS: PROCARDIA XL (EXTENDED RELEASE) 60 MG PO (09:00)
[2024-01-07] MEDS: LOW STRENGTH ASPIRIN 81 MG PO (09:00)
[2024-01-07] MEDS: MIRALAX PO (09:01)
[2024-01-07] MEDS: HEPARIN SC (09:01)
[2024-01-07] MEDS: SENOKOT PO (09:01)
--- NOTE | 2024-01-07 09:36 | CM ---
Spoke w/ [facility] re pt d/c today
Sophia confirmed pt can return before 2 pm.
CM confirmed COVID test was completed. CM faxed negative COVID test to facility per request
CM TT hospitalist requesting d/c order so ambulance transport can be arranged
Transport forms in chart
[facility]
Report: [phone]

Plan: [facility] via ambulance
[2024-01-07 09:54] VITALS: BP 159/54; PULSE 69; O2SAT 96
--- NOTE | 2024-01-07 10:43 | W.PN.HOSP.TC ---
Today's Communication/Plan
-
discharge
Assessment / Plan
Assessment / Plan
88yo F with PMHx of hypothyroidism, HTN sent from [facility] due to concerns that she needs to be in the higher level of care. Upon admission found hyperkalemia with mild Cr elevation, HTN urgency, elevated troponin and poor
hypothyroidism control. With signs of dementia questioning medication compliance.
CT abdomen pelvis-3.6 cm enhancing left adrenal mass necrotic metastatic lesion versus primary neoplasm. Distended CBD in the region of pancreatic head. Constipation with large colonic fecal burden in the abdomen. Small bilateral pleural
effusions with adjacent compressive atelectasis. Small pericardial effusion. Cardiomegaly. Coronary artery calcification. Aortic valve calcification. Mitral annular calcification. Bilateral rib fractures old , some acute which is posterior
12th rib fracture. Age-indeterminate compression fractures T12, L1, L2, L3
MRI of the brain-5 mm focus of restricted diffusion within the posterior right basal ganglia consistent with acute infarction. Moderate global volume loss with sequelae of mild small vessel ischemic disease and prior lacunar infarctions of the
bilateral basal ganglia and right cerebellar hemisphere.
01/01/2024-moderate to severe concentric LVH. EF 65 to 70%. Findings suggestive of cardiac amyloid. Normal RV size and function. Severely dilated LA. Moderate to severe dilated RA. Thickened mitral valve leaflets with significant mitral
annular calcification. Moderate MS. Severe . Moderate AI. Mild TR. Pulmonary artery pressure 35 to 40 mmHg. Small pericardial effusion.
CVS: S1-S2 normal, sm at aa,, dm at apex
Chest: CTA B/L
Abdomen: Soft, NT / Bowel sounds present
Extremities: No edema
MAITRE D: Non focal exam, confused
A/P:
# HTN emergency-pressure improved with Cardene-continue Cardura, nifedipine 60 mg in the morning, 30 mg at night. Altace 10 mg at night
# Valvular heart disease-Severe , moderate MS, moderate AI, mild TR
# Elevated trop 1.1 - non-ischemic injury secondary to hypertensive emergency
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
# Constipation-resolved
# Hyperkalemia- better
# Hyponatremia. SIADH- Free water restriction. Sodium better with Samsca
#GEMMA vs mild Cr elevation on CKD- Better
#Ambulatory dysfunction
#Acute and subacute small lacunar CVA
neuro consult noted - medical mgmt
telemetry without clinically significant arrhythmia
MRA neck without LVO or significant carotid stenosis
ASA, statin
PT OT
#Hs of L shoulder replacement-stable hardware on XR
#Hypothyroidism Dr. Kamara discussed with endo - since no concern for myxedema - increase to 50mcg daily is sufficient with TSH reassessment in 4 weeks with pcp and possible further increase to weight-based 75mcg. AM cortisol appropriate for age
and time (5am)
#Acute CVA - ASA, statin, neuro consult, MRA without LVO or significant carotid stenosis, Echo ordered, Cont telemetry. Patient previously with PMHx of Afib was taken off AC for unknown reason, currently in SR
#CXR showed mediastinal shift to R
CT chest unremarkable for pulmonary pathology
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 abdomen/pelvis noted
Met vs other
Oncology eval appreciated.
Patient's family does not want any further workup
#Several mild compression fractures within the upper lumbar spine
#Multiple bilateral chronic rib fractures.
#Mildly displaced fractures of the posterior left 11th 12 ribs may be more acute in nature
No significant pain
most likely Fx 2/2 osteoporosis and trauma
No evidence for pneumothorax.
Can consider DEXA scan as outpatient vs bisphosphonates treatment with PCP
#Medicine Non compliance
#Cognitive dysfunction
#DVT ppx on hep
#DNR/DNI
D/W RN
Discussed with case management
Abi [phone]
D/W at bed side
More than 30 minutes spent in discharge including
Final examination of the patient
Summarizing hospital stay
Instructions for continuing care to all relevant caregivers
Preparation of discharge records, prescriptions, and referral forms
Total time spent (in minutes):32 min
Anticipated Discharge: Today
Subjective/Interval History
-
Date of Service: January 07, 2024
Objective Data
-
Labs:
Laboratory Results
01/07/24
07:24
Plt Count 220 D
Sodium 133 L
Potassium 4.5
Chloride 100
Carbon Dioxide 25
BUN 39 H
Creatinine 1.3 H
Glucose 82
Calcium 9.1
Vital Signs:
Vital Signs
Temp Pulse Resp BP Pulse Ox
97.4 F 59 18 159/68 98
01/07/24 07:30 01/07/24 09:00 01/07/24 07:30 01/07/24 09:00 01/07/24 07:30
I&O
01/06/24 01/07/24 01/08/24
06:59 06:59 06:59
Intake Total 720 / 720 1560 / 1560
Balance 720 / 720 1560 / 1560
--- NOTE | 2024-01-07 10:44 | W.DS.TRANS ---
Addendum entered and electronically signed by Jarrett Tapia MD 01/07/24 14:35:
Dictation- [id number]
Original Note:
DC Summary - Director Of [employer]
-
Discharge Instructions:
Discharge Diagnosis/Procedures HTN emergency
Valvular heart disease-Severe , moderate MS,
moderate AI, mild TR
Bilateral rib fractures old acute left 12 th
compression fractures t12,L1,L2,L3
3.6 cm enhancing left adrenal mass.
Distended common bile duct in the region of
pancreatic head.
Kidney disease
Ambulatory dysfunction
Acute and subacute small lacunar CVA
Hypothyroidism
Cognitive dysfunction
Additional Diets 50 ounce fluid restriction.
Activity As tolerated,With assistance
Driving Restrictions No driving
Blood Work CMP 1 week, CBC 1 week
Other Services PT,OT
Instructions:
Stand-Alone Forms:
Changes to Home Medications: Yes
Discharge Medications:
DC Medications w/original date entered in [employer]
acetaminophen 325 mg tablet 650 mg (2 x 325 mg) PO Q4HPRN PRN pain #0 tabs 01/06/24
ascorbic acid (vitamin C) 500 mg chewable tablet (Vitamin C) 500 mg PO DAILY Supplement #0 tabs 01/06/24
aspirin 81 mg chewable tablet 81 mg PO DAILY Blood clot prevention/tx #0 tabs 01/06/24
atorvastatin 40 mg tablet 40 mg PO QPM High cholesterol #0 tabs 01/06/24
cholecalciferol (vitamin D3) 50 mcg (2,000 unit) tablet 50 mcg PO DAILY Supplement #0 tabs 01/06/24
docusate sodium 100 mg capsule 100 mg PO BID Constipation #0 caps 01/06/24
doxazosin 4 mg tablet 4 mg PO DAILY Blood pressure #0 tabs 01/06/24
levothyroxine 25 mcg tablet 50 mcg (2 x 25 mcg) PO DAILY Thyroid #0 tabs 01/06/24
nifedipine 30 mg tablet,extended release 30 mg PO HS Blood pressure #0 tabs 01/06/24
nifedipine 60 mg tablet,extended release 60 mg PO DAILY Blood pressure #0 tabs 01/06/24
polyethylene glycol 3350 17 gram oral powder packet (HealthyLax) 17 g PO DAILY Constipation #0 ea 01/06/24
ramipril 10 mg capsule 10 mg PO HS Blood pressure #0 caps 01/06/24
sennosides 8.6 mg tablet (Senna Laxative) 17.2 mg (2 x 8.6 mg) PO HS Constipation #0 tabs 01/06/24
vit C 250 mg-vit E 90 mg-zinc 40 mg-copper 1 [id number] capsule (PreserVision AREDS-2) 1 tab PO BID Supplement #0 caps 01/06/24
Home Medication Changes
Spironolactone discontinued
Nifedipine is new
Synthroid increased
Pending Results: No
--- NOTE | 2024-01-07 11:40 | PTCARENOTE ---
Report called to Domitila Seymour RN. No IV. No tele. Belongings packed. Awaiting transport via ambulance.
[2024-01-07 12:06] VITALS: BP 130/62
== END 2024-01-07 12:15 | DRG 682 ==
LOC: 4 EAST ACU 20:51
PROVIDERS: Internal Medicine; Nurse Practitioner Gerontology; ADMITTING PHYSICIAN Hospitalist; ATTENDING PHYSICIAN Hospitalist; CONSULT PHYSICIAN Internal Medicine; CONSULT PHYSICIAN Psychiatry & Neurology Neurology; EMERGENCY PHYSICIAN Emergency Medicine; FAMILY PHYSICIAN Internal Medicine Geriatric Medicine; OTHER PHYSICIAN Internal Medicine Hematology & Oncology
DX: N17.9 Acute kidney failure, unspecified (principal); I63.81 Other cerebral infarction due to occlusion or stenosis of small artery; E22.2 Syndrome of inappropriate secretion of antidiuretic hormone; I16.1 Hypertensive emergency; I31.39 Other pericardial effusion (noninflammatory); I5A Non-ischemic myocardial injury (non-traumatic); J90 Pleural effusion, not elsewhere classified; S22.43XA Multiple fractures of ribs, bilateral, initial encounter for closed fracture; Z66 Do not resuscitate; M80.88XA Other osteoporosis with current pathological fracture, vertebra(e), initial encounter for fracture; M80.8AXA Other osteoporosis with current pathological fracture, other site, initial encounter for fracture; G91.2 (Idiopathic) normal pressure hydrocephalus; R47.01 Aphasia; E03.9 Hypothyroidism, unspecified; F03.90 Unspecified dementia, unspecified severity, without behavioral disturbance, psychotic disturbance, mood disturbance, and anxiety; I08.0 Rheumatic disorders of both mitral and aortic valves; I10 Essential (primary) hypertension; R62.7 Adult failure to thrive; E27.8 Other specified disorders of adrenal gland; K83.8 Other specified diseases of biliary tract; E87.5 Hyperkalemia; R29.6 Repeated falls; E86.0 Dehydration; E86.1 Hypovolemia; E87.6 Hypokalemia; I48.91 Unspecified atrial fibrillation; K59.00 Constipation, unspecified; R53.81 Other malaise; R47.1 Dysarthria and anarthria; R53.1 Weakness; Z91.148 Patient's other noncompliance with medication regimen for other reason; W19.XXXA Unspecified fall, initial encounter; Z79.890 Hormone replacement therapy; Z79.899 Other long term (current) drug therapy; Z96.612 Presence of left artificial shoulder joint
CPT/HCPCS: 70450; 70544; 70547; 70551; 71045; 71250; 74170; 80048; 80053; 80061; 81003; 81015; 82533; 83036; 83735; 83930; 83935; 84300; 84439; 84443; 84484; 85025; 85027; 85049; 87502; 87811; 92610; 93005; 93306; 96361; 96374; 97116; 97162; 97167; 97530; 97535; 99291; Q9967